=== PATIENT | male | born 1940 | race Caucasian/White ===

== ENCOUNTER 2019-04-14 10:23 | Inpatient (IN) | payer MEDICARE ==
--- NOTE | 2019-04-14 12:06 | ED Physician Documentation ---
PD HPI LOWER EXT INJURY - Stated complaint Stated Complaint: GLF - RT LEG PX - Chief complaint Chief Complaint: Ext Problem - History obtained from History obtained from: Patient, Family - History of Present Illness PD HPI LOW EXT INJURY LOCATION: Right, Hip Type of injury: Fall Where injury occurred: Other (parking lot) Timing - onset: Today Timing - duration: Hours (1) Timing - details: Abrupt onset Pain level max: 7 Pain level now: 5 Improved by: Rest, Ice, Immobilization Worsened by: Moving, Palpating Associated symptoms: No: Weakness, Numbness, Tingling, Swelling Contributing factors: No: Anticoagulated Similar symptoms before: Has not had sx before Recently seen: Not recently seen Review of Systems Ten Systems: 10 systems reviewed and negative Constitutional: denies: Fever, Chills Cardiac: denies: Chest pain / pressure Respiratory: denies: Cough GI: denies: Nausea, Vomiting, Diarrhea : denies: Dysuria Skin: denies: Rash Musculoskeletal: denies: Neck pain, Back pain Neurologic: denies: Headache PD PAST MEDICAL HISTORY - Past Medical History Past Medical History: Yes Endocrine/Autoimmune: Type 2 diabetes - Past Surgical History Past Surgical History: No - Present Medications Home Medications: Ambulatory Orders Medication Instructions Recorded Confirmed Aspirin 81 mg PO DAILY 04/14/19 04/14/19 Atenolol 50 mg PO BID 04/14/19 04/14/19 Glipizide 10 mg PO BID 04/14/19 04/14/19 Levothyroxine [Synthroid] 125 mcg PO QDAC 04/14/19 04/14/19 Lisinopril 40 mg PO DAILY 04/14/19 04/14/19 Metformin HCl 850 mg PO TID 04/14/19 04/14/19 Simvastatin 1.5 tab PO DAILY PM 04/14/19 04/14/19 hydroCHLOROthiazide 0.5 tab PO DAILY 04/14/19 04/14/19 [Hydrochlorothiazide] - Allergies Allergies/Adverse Reactions: Allergies Allergy/AdvReac Type Severity Reaction Status Date / Time No Known Drug Allergies Allergy Verified 04/14/19 10:38 - Social History Does the pt smoke?: No Smoking Status: Never smoker Does the pt drink ETOH?: Yes Does the pt have substance abuse?: No - Immunizations Immunizations: TDAP current <10years, Other immun not current PD ED PE NORMAL - Vitals Vital signs reviewed: Yes - General General: Alert and oriented X 3, No acute distress - HEENT HEENT: Atraumatic, PERRL, Moist mucous membranes - Neck Neck: Supple, no meningeal sign - Cardiac Cardiac: RRR, Strong equal pulses - Respiratory Respiratory: No respiratory distress, Clear bilaterally - Abdomen Abdomen: Soft, Non tender, Non distended - Back Back: No spinal TTP - Derm Derm: Warm and dry - Extremities Extremities: Other (TTP R hip, limited ROM 2/2 pain. NVI) - Neuro Neuro: Alert and oriented X 3, No motor deficit, No sensory deficit - Psych Psych: Normal mood, Normal affect Results - Vitals Vitals: Vital Signs - 24 hr 04/14/19 04/14/19 10:35 12:35 Temperature 36.8 C 36.5 C Heart Rate 59 L 61 Respiratory 16 16 Rate Blood Pressure 112/55 L 143/65 H O2 Saturation 100 99 Oxygen O2 Source Room air - EKG (time done) 1224 Rate: Rate (enter#) (61) Rhythm: NSR [place]: Normal Intervals: 1st degree AVB QRS: Normal Ischemia: Normal ST segments - Labs Labs: Laboratory Tests 04/14/19 04/14/19 04/14/19 12:20 12:20 12:20 WBC 10.4 RBC 3.98 L Hgb 12.8 L Hct 37.6 L MCV 94.5 H MCH 32.2 H MCHC 34.0 RDW 12.6 Plt Count 206 MPV 9.8 Neut # (Auto) 8.2 H Lymph # (Auto) 1.5 [place] # (Auto) 0.4 Eos # (Auto) 0.3 Baso # (Auto) 0.1 Absolute Nucleated RBC 0.00 Nucleated RBC % 0.0 Sodium 141 Potassium 4.3 Chloride 106 Carbon Dioxide 27 Anion Gap 8.0 BUN 29 H Creatinine 1.2 Estimated GFR (MDRD) 58 L Glucose 215 H Calcium 9.8 Total Bilirubin 0.8 AST 24 ALT 22 Alkaline Phosphatase 83 Total Protein 7.4 Albumin 4.1 Globulin 3.3 Albumin/Globulin Ratio 1.2 Lipase 125 H Blood Type O POSITIVE Antibody Screen NEGATIVE - Rads (name of study) r hip xray Radiology: Prelim report reviewed, EMP read contemporaneously, See rad report (Acute mildly displaced oblique fracture involving the right femoral neck and greater and lesser trochanters, best seen on AP study. No additional fractures or joint abnormalities noted. ) cxr Radiology: Prelim report reviewed, EMP read contemporaneously, See rad report ( Low lung volumes with presumed right basilar atelectasis. Otherwise clear lungs 2. Suspected right diaphragmatic eventration. ) PD MEDICAL DECISION MAKING - ED course Complexity details: reviewed results, re-evaluated patient, considered differential, d/w patient, d/w family, d/w beauty consultant ED course: 78-year-old male with a right hip fracture. Consult orthopedics Dr. Vera who will take him to the operating room for repair. Consulted the hospitalist, Dr. Salguero as well. I contacted the [facility] x2 and left messages at approximately 1215 and 1:15 PM. No callback from the [facility]. Patient needs care and therefore we will care for him here. This document was made in part using voice recognition software. While efforts are made to proofread this document, sound alike and grammatical errors may occur. Departure - Departure Disposition: 66 [facility] DC/Xfer Clinical Impression: Hip fracture, right Qualifiers: Encounter type: initial encounter Fracture type: closed Qualified Code(s): S72.001A - Fracture of unspecified part of neck of right femur, initial encounter for closed fracture Condition: Stable Discharge Date/Time: 04/14/19 14:18
--- NOTE | 2019-04-14 12:07 | XRAY Report ---
Reason: fall, R hip pain Procedure Date: 04/14/2019 Accession Number: [id number] / [id number] Procedure: XR - Hip w/Pelvis 2-3V RT CPT Code: Final Report FULL RESULT: EXAM: PELVIS FOR HIP RADIOGRAPHY, 2 VIEWS EXAM DATE: 04/14/2019 11:39 AM. CLINICAL HISTORY: 78-year-old male status post fall with right hip pain. COMPARISON: XR R HIP 02/24/2007 7:08 PM. TECHNIQUE: AP view the pelvis and both hips and cross table lateral view right hip. FINDINGS: Bones: Mildly displaced oblique fracture involving the right femoral neck and greater and lesser trochanter. No additional fractures noted. Osseous structures otherwise unremarkable for age. Joints: Normal. No dislocation. The hip joint space is preserved. No subluxation or joint effusion. Soft Tissues: Normal. No soft tissue swelling. IMPRESSION: Acute mildly displaced oblique fracture involving the right femoral neck and greater and lesser trochanters, best seen on AP study. No additional fractures or joint abnormalities noted. RADIA
--- NOTE | 2019-04-14 12:21 | XRAY Report ---
Reason: preop Procedure Date: 04/14/2019 Accession Number: [id number] / [id number] Procedure: XR - Chest 1 View X-Ray CPT Code: 78500 Final Report FULL RESULT: EXAM: CHEST RADIOGRAPHY EXAM DATE: 04/14/2019 11:45 AM. CLINICAL HISTORY: Preop. COMPARISON: None.. TECHNIQUE: 1 view. FINDINGS: Lungs/Pleura: Low lung volumes. Lobular contour of right hemidiaphragm suggesting eventration. Linear opacities in the right base likely reflect atelectasis. Otherwise clear lungs without other focal consolidation, pleural effusion, or pneumothorax. Mediastinum: Within exam limitations, the cardiomediastinal contour is normal. Other: None. IMPRESSION: 1. Low lung volumes with presumed right basilar atelectasis. Otherwise clear lungs 2. Suspected right diaphragmatic eventration. RADIA
[2019-04-14 12:33] LABS: BASOPHILS # (AUTO) 0.1 10^3/uL (0.0-0.1); BASOPHILS % (AUTO) 0.7 %; EOSINOPHILS # (AUTO) 0.3 10^3/uL (0.0-0.7); EOSINOPHILS % (AUTO) 2.6 %; HGB - HEMOGLOBIN 12.8 g/dL (14.0-18.0); LYMPHOCYTES # (AUTO) 1.5 10^3/uL (1.5-3.5); MEAN CORPUSCULAR HEMOGLOBIN 32.2 pg (27.0-31.0); MEAN CORPUSCULAR VOLUME 94.5 fL (80.0-94.0); MEAN PLATELET VOLUME 9.8 fL (7.4-11.4); MONOCYTES # (AUTO) 0.4 10^3/uL (0.0-1.0); MONOCYTES % (AUTO) 3.8 %; NEUTROPHILS # (AUTO) 8.2 10^3/uL (1.5-6.6); NEUTROPHILS % (AUTO) 78.3 %; PLT - PLATELET COUNT 206 10^3/uL (130-450); RED BLOOD COUNT 3.98 10^6/uL (4.70-6.10); RED CELL DISTRIBUTION WIDTH 12.6 % (12.0-15.0); WHITE BLOOD COUNT 10.4 x10^3/uL (4.8-10.8)
[2019-04-14] MEDS ORDERED: ceFAZolin 2 GM in SODIUM CHLORIDE 0.9% 100ML 100 ML IV STA (12:44)
[2019-04-14 12:46] LABS: ALBUMIN 4.1 g/dL (3.2-5.5); ALBUMIN/GLOBULIN RATIO 1.2 (1.0-2.2); BILIRUBIN,TOTAL 0.8 mg/dL (0.2-1.0); CALCIUM 9.8 mg/dL (8.5-10.3); CREATININE 1.2 mg/dL (0.6-1.2); TOTAL PROTEIN 7.4 g/dL (6.7-8.2)
--- NOTE | 2019-04-14 12:48 | PROVIDER PROGRESS NOTE ---
Subjective - Prog Note Date Prog Note Date: 04/14/19 Prog Note Time: 12:46 - Subjective Pt reports feeling: Worse (GLF at [facility], sustaining a minimally displaced right IT hip fracture. No LOC or other injury) Objective - Vital Signs/Intake & Output Vital Signs: Vital Signs x48h Temp Pulse Resp BP Pulse Ox 04/14/19 12:35 36.5 C 61 16 143/65 H 99 04/14/19 10:35 36.8 C 59 L 16 112/55 L 100 - Lab Results Fish Bones: 04/14/19 12:20 04/14/19 12:20 Other Labs: Lab Results x24hrs 04/14/19 04/14/19 Range/Units 12:20 12:20 WBC 10.4 (4.8-10.8) x10^3/uL RBC 3.98 L (4.70-6.10) 10^6/uL Hgb 12.8 L (14.0-18.0) g/dL Hct 37.6 L (42.0-52.0) % MCV 94.5 H (80.0-94.0) fL MCH 32.2 H (27.0-31.0) pg MCHC 34.0 (32.0-36.0) g/dL RDW 12.6 (12.0-15.0) % Plt Count 206 (130-450) 10^3/uL MPV 9.8 (7.4-11.4) fL Neut # (Auto) 8.2 H (1.5-6.6) 10^3/uL Lymph # (Auto) 1.5 (1.5-3.5) 10^3/uL [place] # (Auto) 0.4 (0.0-1.0) 10^3/uL Eos # (Auto) 0.3 (0.0-0.7) 10^3/uL Baso # (Auto) 0.1 (0.0-0.1) 10^3/uL Absolute Nucleated RBC 0.00 x10^3/uL Nucleated RBC % 0.0 /100WBC Sodium 141 (135-145) mmol/L Potassium 4.3 (3.5-5.0) mmol/L Chloride 106 (101-111) mmol/L Carbon Dioxide 27 (21-32) mmol/L Anion Gap 8.0 (6-13) BUN 29 H (6-20) mg/dL Creatinine 1.2 (0.6-1.2) mg/dL Estimated GFR (MDRD) 58 L (>89) Glucose 215 H (70-100) mg/dL Calcium 9.8 (8.5-10.3) mg/dL Total Bilirubin 0.8 (0.2-1.0) mg/dL AST 24 (10-42) IU/L ALT 22 (10-60) IU/L Alkaline Phosphatase 83 (42-121) IU/L Total Protein 7.4 (6.7-8.2) g/dL Albumin 4.1 (3.2-5.5) g/dL Globulin 3.3 (2.1-4.2) g/dL Albumin/Globulin Ratio 1.2 (1.0-2.2) Lipase 125 H (22-51) U/L - Diagnostic Imaging Diagnostic Imaging Comments: XR show right IT hip fracture - Other Results/Comments Other Results/Comments: EXAM: Right hip - tender laterally. Painful hip motion. Moves toes well. Sensation intact. Good cap filling Assessment/Plan - Problem List (1) Hip fracture, right Impression: Stable PLAN: To OR today for short interTan nailing of right hip fracture. Risk and benefits of surgery explained. questions answered. Leg marked. Consent signed by son, per patient's wishes. Qualifiers: Encounter type: initial encounter Fracture type: closed Qualified Code(s): S72.001A - Fracture of unspecified part of neck of right femur, initial encounter for closed fracture
--- NOTE | 2019-04-14 12:48 | ANESTHESIA ---
Pre-Anesthesia VS, & Labs - Diagnosis Right fracture hip - Procedure Right hip nailing Vital Signs: Temp Pulse Resp BP Pulse Ox 36.5 C 61 16 143/65 H 99 04/14/19 12:35 04/14/19 12:35 04/14/19 12:35 04/14/19 12:35 04/14/19 12:35 Height 5 ft 7 in Weight (kg) 81.647 kg Body Mass Index 28.1 - NPO Other (Breakfast at 0800) - Lab Results Current Lab Results: Laboratory Tests 04/14/19 12:20: WBC 10.4, RBC 3.98 L, Hgb 12.8 L, Hct 37.6 L, MCV 94.5 H, MCH 32.2 H, MCHC 34.0, RDW 12.6, Plt Count 206, MPV 9.8, Neut # (Auto) 8.2 H, Lymph # (Auto) 1.5, [place] # (Auto) 0.4, Eos # (Auto) 0.3, Baso # (Auto) 0.1, Absolute Nucleated RBC 0.00, Nucleated RBC % 0.0 Fish Bones: 04/14/19 12:20 Home Medications and Allergies Allergies/Adverse Reactions: Allergies Allergy/AdvReac Type Severity Reaction Status Date / Time No Known Drug Allergies Allergy Verified 04/14/19 10:38 Anes History & Medical History - Anesthetic History Anesthesia Complications: reports: No previous complications Family history of Anesthesia Complications: Denies Family history of Malignant Hyperthermia: Denies - Medical History Cardiovascular: reports: Hypertension Pulmonary: reports: None Gastrointestinal: reports: None Urinary: reports: None Neuro: reports: None Musculoskeletal: reports: None Endocrine/Autoimmune: reports: Type 2 diabetes Blood Disorders: reports: None Skin: reports: Other (Skin cancer) Smoking Status: Former smoker Psychosocial: reports: No issues indicated Results - EKG Results EKG Comparison: Reviewed EKG (Auscultated SARAH II/IV) Exam General: Alert, Oriented x3, Cooperative Dental: Dentures full Upper, Dentures full Lower, Partials Lower Mouth Opening: Greater than 4 Fingerbreadths Neck Mobility: Normal Mallampati classification: II Thyromental Distance: greater than 6 cm Respiratory: Lungs clear Cardiovascular: Regular rate, Other (Systolic ejection murmur) Mental/Cognitive Status: Alert/Oriented X3 Cognitive Status: Within normal limits Plan Anesthesia Type: General Consent for Procedure(s) Verified and Reviewed: Yes Code Status: Attempt Resuscitation ASA classification: 3-Severe systemic disease Is this case an emergency?: Yes
--- NOTE | 2019-04-14 13:04 | CONSULTATION NOTE ---
DATE OF SERVICE: 04/14/2019 Physician: Eduar Vera MD REFERRING PHYSICIAN: Dr. Keyon Alarcon of the emergency room department. CHIEF COMPLAINT: "My right hip hurts." HISTORY OF PRESENT ILLNESS: The patient is an 78-year-old male, diabetic, who apparently w as walking up a ramp at [employer] when he stumbled and fell onto his right side. He noted immediate pa in and deformity in the leg. He was unable to stand or weight bear after this fall. Denies any loss of consciousness or other injuries. No distal weakness and numbness noted. He was taken by sam perez to the emergency room here at [facility]. He was evaluated, including x-rays that s howed evidence of a minimally displaced right intertrochanteric hip fracture. There was no neurovasc ular compromise. PHYSICAL EXAMINATION: The patient had 1-2+ tenderness on palpation over the lateral aspect of the ri ght hip. Had painful range of motion of the hip. Moves his toes satisfactory. Sensation intact thr oughout the lower extremity. Good capillary filling noted of the toes. IMAGING: X-rays that were taken were reviewed and show evidence of a mildly displaced right intertro chanteric hip fracture. ASSESSMENT: 1. Closed right intertrochanteric hip fracture. 2. History of diabetes. PLAN: The patient apparently had breakfast at 8:00 this morning. I have discussed this case with an esthesia in the OR and we will plan then on tentatively proceeding with surgical fixation of this fra cture at about 2 p.m. today. I plan on doing a short Intertan nailing of his fracture. Risks and be nefits of surgery were explained to the patient and his son, including the anesthesia risks, infectio n, blood loss, nerve damage, malunion, nonunion, hardware failure, blood clots, etc. The patient appe ared to understand these risks and benefits. All questions were answered. They wished to proceed wi surgery as planned. The leg was marked. Consent signed. TD: 04/14/2019 12:54
[2019-04-14] MEDS ORDERED: MORPHINE 2 MG/ML CARPUJECT IVP PRN (13:30)
[2019-04-14] MEDS ORDERED: SODIUM CHLORIDE FLUSH 0.9% 10 ML SYRINGE IVP PRN ×2 (13:30→16:02)
[2019-04-14] MEDS ORDERED: ONDANSETRON ODT 4 MG TABLET TL PRN (13:30)
[2019-04-14] MEDS ORDERED: ONDANSETRON 4 MG/2 ML VIAL IVP PRN ×2 (13:30→16:02)
[2019-04-14] MEDS ORDERED: SODIUM CHLORIDE 0.9% 1,000 ML IV SCH ×2 (14:00→17:00)
[2019-04-14] MEDS ORDERED: LACTATED RINGERS 1,000 ML IV ONE (14:19)
--- NOTE | 2019-04-14 14:53 | HISTORY & PHYSICAL EXAMINATION ---
DATE OF SERVICE: 04/14/2019 Physician: Nilsa Salguero MD PRIMARY CARE PROVIDER: [facility]. ADMITTING PROVIDER: Nilsa Salguero MD CHIEF COMPLAINT: Fall with hip pain. HISTORY OF PRESENT ILLNESS: Patient is an absolutely pleasant 78-year-old white male. He is a retired flux core welder. It is not very in tune with his medical problems. He knows he has diabetes, but he takes a lot more pills for other conditions that he cannot name. He denies having dementia. He was walking in the parking lot today of [employer], tripped and fell and landed on his right side. He was brought to the emergency room and he has a mildly displaced oblique fracture involving the right femoral neck and greater and lesser trochanter. Because he is a [facility] patient, we have attempted to contact the [facility] twice now. Dr. Alarcon has carefully documented our attempts at contacting the [facility] to see if they wanted us to transfer him to their facility. Patient has already been here several hours, and while his surgery is not emergent, it is urgent. As such, we are going to go ahead and admit patient to our service for orthopedic surgery to consult so he could be treated expeditiously for this femur fracture. Although patient states that he is not aware of any other medical conditions, besides diabetes, he does on review of systems state that everything is fine. He has no change in cardiovascular endurance for over a year. He denies chest pain, palpitations, and this shortness of breath is the same as it has always been for decades. He denies edema, any change in bowel or bladder habits, abdominal pain. Denies urgency, frequency, dysuria. Appetite is the same as it has always been. He has no unexpected weight changes. He gets up at night to urinate, depending on how much fluid he drank during the day. Otherwise, he has no nocturia. He has slight decreased stream. Has mild osteoarthritis complaints and stiffness in the morning that resolves by late afternoon, but nothing that slowed him down. He is still able to take care of all of his activities of daily living. He feeds himself, dresses himself, does occasional light chores in the house. His son does live with him. That is more for financial reasons then lack of ability to take care of himself. When I asked him how his diabetes is doing. He does not have any intersection. He does not check his sugars. Has no idea what an A1c is. PAST MEDICAL HISTORY 1. Diabetes. 2. Unknown diseases. We will need to verify once his pills have got brought in. At this time, the [facility] is not able to answer my phone call directly. ALLERGIES: NO KNOWN DRUG ALLERGIES. MEDICATIONS: Unknown at this time. He says he takes 3 pills, one of them is as an aspirin. Son has gone home to get medications. SOCIAL HISTORY: Born and raised in [facility] and [facility]. When he was growing up, his father was working for [employer]. They had a huge contract in [place]. While they were in [place] the orders came down, that if they wanted to continue working on this project and continue using the [employer], they would have to become [place] Citizens. As such, his dad moved the family down to [facility] where patient became a [place] citizen. 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 He was in [place] for 10 years. To his knowledge he is not service connected. He smoked, started at the age of 14 and quit somewhere in his mid 20s. Smoked 1 pack per day. He drank very heavily in his youth, but had probably stop drinking by late 30s to that extent. Never had problems with alcohol withdrawal, cirrhosis of the liver. He used to drink up to 3 beers on a Wednesday night when he goes to the [employer]. In the last 10 years, he has brought that down to 1 beer on a Wednesday night. His has been for about 6 years. He says he does not know what she of. He has no history of recreational substance abuse even in [place]. FAMILY HISTORY 1. Mom at age 43 of heart disease, unknown type. It was a sudden . Dad at age 84, about 6 years ago. That is an interesting age range. Dad of "old age." 2. One sister is healthy in [facility]. 3. Two kids are healthy. One son lives with him here in [place]. One daughter lives nearby. Between the 2 of them he has 6 grandkids and he absolutely adores them. As far as he knows, his kids are healthy, no high blood pressure, cancer, diabetes, heart attack, stroke or thyroid disease. REVIEW OF SYSTEMS: An 11-point review of systems done as above in history of present illness. All pertinent positives and negatives registered. He denies memory loss, syncope, seizures. PREVIOUS LEVEL OF FUNCTION: Noted above in history of present illness. PHYSICAL EXAMINATION VITAL SIGNS: Temperature is 36.8, pulse of 61, blood pressure is 143/65, respirations are 16, and he is 99% on room air. GENERAL: He is an elderly gentleman, unshaven, slightly disheveled, lying flat on his back with his hands folded across his chest. Lying comfortably long as we do not move him. He is very jovial. Appears comfortable as long as we do not move that leg. NECK: Shows him to have healing of a yellowish grayscale between his eyebrows, over the bridge of his nose, down the bridge of his nose to the nasolabial folds. An area over the right preauricular area that appeared ulcerated as well. Pupils are equal, round and reactive. Sclerae are nonicteric. Slightly dry oral mucosa and lips. Voice is slightly hoarse. No facial asymmetry. Speech is normal. NECK: Supple. No goiter. No bruits. No JVD. LUNGS: Coarse anterior breath sounds. No crackles, rhonchi or wheezing. Slightly prolonged in exhalation. No respiratory effort that is increased with speaking to me. PMI is normally placed with distant cardiac tones with a regular rate, rhythm and a soft systolic murmur at left lower sternal border. ABDOMEN: Obese, soft, nontender. Normal bowel sounds. No hepatosplenomegaly. No rebound or guarding. EXTREMITIES: Warm. Right leg is externally rotated. Left leg has good dorsalis pedis and posterior tibial pulses. No clubbing, cyanosis or edema in hands or feet. NEUROLOGIC: He is alert, oriented to person, place and time. Cranial nerves II-XII appear grossly intact other than he may be slightly deaf. Upper extremity strength testing is normal. He can lift his arms above his head, squeeze my hands, biceps and triceps strength testing appears symmetrical bilaterally. He can move his left leg for me, bend at the knee, lift his leg off the table. He can wiggle his right toes, but I am not moving his right leg at this time, toes are downgoing. LABORATORY DATA: Sodium 141, potassium 4.3, BUN 29, creatinine 1.2, random glucose 215, lipase 125, white cell count 10.4, hemoglobin 12.8, hematocrit 37.6, MCV 94.5, platelets 206. IMAGING: Hip x-ray is as above. He has acute mildly displaced oblique fracture involving the right femoral neck and greater and lesser trochanter. Best seen on AP study. Chest x-ray has low lung volumes with presumed right bibasilar atelectasis. Suspected right diaphragmatic eventration. EKG has sinus rhythm. Prolonged LA interval to 234, compatible with first- degree AV block. Early transition and is always, loss of any anterior voltage in aVF. Slight nondiagnostic Q in lead III. No acute ST-T wave changes. Sinus rhythm. ASSESSMENT/PLAN 1. Fracture, right femur. Due to mechanical fall. PLAN +Inpatient admission. +ATTESTATION: Patient will be discharged within 96 hours. +Orthopedic consult has already been obtained. +Surgery planned for this afternoon, patient kept n.p.o. 2. Preoperative evaluation. This patient NSQUIP score for serious complication is 5.7%. Average risk is 9.2%. For any complication, his risk is 5.9%, with average was 9.6%. Cardiac complication is 0.3%, with average risk of 1%. Most likely he will be discharged to a rehab facility on postoperative day #3. Predicted length of stay will be 3.5 days. 3. Type 2 diabetes mellitus. Unknown if controlled or uncontrolled by his history. Unknown what medications he uses. PLAN +N.p.o. status at this time. +Check A1c. +Start sliding scale insulin 6 hours as needed until he is able to eat. Most likely it will be later on this evening. 4. Medication reconciliation. This will need to be done. His son will be going to the house to go poultry picking machine tender the medications and bring all those bottles in for us. 5. Deep venous thrombosis prophylaxis will be compression stockings and JASEN hose. 6. FULL CODE status at this time. TD: 04/14/2019 14:03 AR
[2019-04-14] MEDS ORDERED: SODIUM CHLORIDE 0.9% 1,000 ML IV ONE (15:20)
[2019-04-14] MEDS: BUPIVACAINE 0.5%-EPI 1:200000 PF 30 ML VIAL ONE ×2 (15:21→15:46)
[2019-04-14] MEDS ORDERED: PROCHLORPERAZINE 10 MG/2 ML VIAL IVP PRN (16:02)
[2019-04-14] MEDS ORDERED: SENNA 8.6 MG TABLET PO PRN (16:02)
[2019-04-14] MEDS ORDERED: DOCUSATE SODIUM 100 MG CAPSULE PO PRN (16:02)
--- NOTE | 2019-04-14 16:07 | OPERATIVE REPORT ---
Operative Report - General Admit Date: 04/14/19 Procedure Date: 04/14/19 Planned Procedure: Short interTan nailing Right hip fracture Pre-Op Diagnosis: Closed right intertrochanteric hip fracture Procedure Performed: Closed reduction and short interTan nailing right hip fracture Post Op Diagnosis: Same - Procedure Note Primary Surgeon: Kellie Vera MD Anesthesia Provider: Chinedu Driscoll CRNA Anesthesia Technique: General ET tube IV Fluids (mL): 1,000 Estimated Blood Loss (mL): 50 Complications: None
[2019-04-14] MEDS ORDERED: SODIUM CHLORIDE FLUSH 0.9% 10 ML SYRINGE IVP SCH (17:00)
[2019-04-14] MEDS: SODIUM CHLORIDE FLUSH 0.9% 10 ML SYRINGE IVP SCH (17:21)
[2019-04-14] MEDS ORDERED: ROCURONIUM 50 MG/5 ML VIAL IVP ONE (17:45)
[2019-04-14] MEDS ORDERED: NEOSTIGMINE 1 MG/1 ML 10 ML MDV IVP ONE (17:45)
[2019-04-14] MEDS ORDERED: PROPOFOL 200 MG/20 ML VIAL IVP ONE (17:45)
[2019-04-14] MEDS ORDERED: fentaNYL 100 MCG/2 ML VIAL IVP ONE (17:45)
[2019-04-14] MEDS ORDERED: GLYCOPYRROLATE 1 MG/5 ML VIAL IVP ONE (17:45)
[2019-04-14 17:51] LABS: BILIRUBIN,URINE NEGATIVE (NEGATIVE); GLUCOSE, URINE (UA) NEGATIVE (NEGATIVE); KETONES,URINE (UA) 15 mg/dL (NEGATIVE); LEUKOCYTE ESTERASE, URINE NEGATIVE (NEGATIVE); NITRITE,URINE NEGATIVE (NEGATIVE); OCCULT BLOOD,URINE TRACE-INTA (NEGATIVE); PROTEIN,URINE NEGATIVE (NEGATIVE); UROBILINOGEN,URINE 0.2 (NORMAL) E.U./dL (NORMAL)
[2019-04-14 17:55] LABS: CLARITY,URINE CLEAR (CLEAR)
--- NOTE | 2019-04-14 17:59 | OPERATIVE REPORT ---
DATE OF SERVICE: 04/14/2019 Physician: Eduar Vera MD PREOPERATIVE DIAGNOSIS: Closed right intertrochanteric hip fracture. POSTOPERATIVE DIAGNOSIS: Closed right intertrochanteric hip fracture. PROCEDURE PERFORMED: Closed reduction and short Intertan nailing of right hip fracture. SURGEON: Eduar Vera MD ANESTHESIA: General. DESCRIPTION OF PROCEDURE: Patient was taken to the operating room in the afternoon of 04/14/2019, wh ere he was placed under general anesthetic in the supine position without any complications. A regio nal nerve block was then performed on patient and a Perez catheter was inserted. Once this was done, he was then transferred supine onto the fracture table. The left unfractured extremity had its hip flexed and widely abducted and held with a well leg rodriguez. The fractured right lower extremity was then placed in axial traction with the leg internally rotated about 10-15 degrees. Fluoroscopic view s in AP and lateral projection, showed good reduction of our fracture and good visualization of the h ip joint as well as the proximal femur. We then prepped and draped the lateral hip and thigh in the usual fashion for our procedure. Through an oblique skin incision proximal to the tip of the greater trochanter, we dissected through the skin and subcutaneous tissues and fascial layers until we reached the greater trochanter. This i s where we placed the tip of the threaded guide pin. Its position was confirmed using fluoroscopic v iews. Satisfied with the start point, we then drove the guide pin under power through the greater tr ochanter into the proximal femur to the level of the lesser trochanter. Fluoroscopic views in AP and lateral projection, showed proper position of our guide pin and proper depth in both views. Satisfi ed with this, we then used the cannulated 16 mm channel reamer to ream the proximal femur over using our guide pin. The guide pin and reamer were then removed. We then inserted the selected short Inte rtan nail: 10 mm x 18 cm x 125 degree angle. This was inserted with the insertion outrigger. After using the mallet to drive the nail into its proper position, this was advanced down the femoral adriana l until the proximal oblique hole in the nail was in line with the central axis of the femoral neck a nd head. Once this reached the proper level, we then placed the oval drill sleeve into the distal en d of our alignment jig. This was advanced through a small skin incision to the lateral femoral kristian x. We then placed a pin guide in our drill sleeve and proceeded to drive the threaded-tip guidewire up through the proximal femur, femoral neck and femoral head. The position of the guide pin in AP an d lateral projection was noted to be very close to the central axis in both planes and was felt to be in a satisfactory position. At this point, we then measured with the direct measuring guide and det ermined a 105 mm length subtrochanteric hip lag screw would be utilized. We then removed the pin marilia de and then proceeded to ream the proximal femur with the cannulated reamer, reaming over our inserte d guide pin. The reamer was removed and then the selected subtrochanteric hip lag screw was then scr ewed into place. We used an 11 mm x 105 mm subtrochanteric hip lag screw. After this was inserted t ip of the lag screw was within 2-3 mm of subchondral bone in AP and lateral projections. Satisfied w ith this, we then removed the insertion apparatus. We set the proximal set screw in the nail using t he hinge screwdriver. Once we screwed this tight, we then backed it off 90 degrees. Next, we placed a concentric silver and gold drill sleeves into the distal end of our alignment jig through a small skin incision, placing these guides up against the lateral femoral cortex. Our drill was then used t o perforate the lateral and medial shaft cortices. Fluoroscopic view showed that the drill was just beyond the medial femoral cortex. Direct measurements off our drill indicated a 35 mm distal locking screw would be utilized. We then removed the drill and the inner silver sleeve. We then inserted t he selected distal locking screw: 5 mm x 35 mm and screwed this into place. We got bicortical purch ase, which was confirmed in AP and lateral projections at the tip of the nail. This showed the screw to be through the distal hole in our nail, as well. Satisfied with this, we then obtained permanent views in AP and lateral projections of the tip of the nail and of the proximal end of the nail showi ng the fracture to be reduced satisfactorily and satisfactory placement of all the hardware. We then removed the insertion outrigger from the proximal end of our nail. We then irrigated the wounds out thoroughly with saline, closed the proximal wound fascia reba incision using a [id number] stitc h of 0 Vicryl. Subcutaneous tissue closed with simple buried stitches of 2-0 Vicryl in the proximal 2 incisions. Finally, all 3 skin incisions were closed with skin luciana. We injected a total of 20 mL of 0.5% Marcaine with epinephrine to provide skin anesthesia in all 3 incisions. We washed the w ounds and applied dressings to our incision sites. Patient was then awoken from his anesthetic and sheila barney to the recovery room in satisfactory condition. ESTIMATED BLOOD LOSS: 50 mL REPLACEMENT: 900 mL of crystalloid. INTRAOPERATIVE COMPLICATIONS: None. PLAN: patient will be advanced to weightbearing as tolerated on this right lower extremity beginning on postoperative day #1. May go walker ambulating, weightbearing as tolerated on this extremity. TD: 04/14/2019 16:18
--- NOTE | 2019-04-14 18:00 | XRAY Report ---
Reason: right hip fracture Procedure Date: 04/14/2019 Accession Number: [id number] / [id number] Procedure: [place] - OR C-Arm Procedure CPT Code: Final Report FULL RESULT: EXAM: FLUOROSCOPIC GUIDANCE EXAM DATE: 04/14/2019 05:30 PM. CLINICAL HISTORY: Right hip fracture. COMPARISON: None. FINDINGS: Images demonstrate various stages of a dynamic compression jerzy screw fixation of an intertrochanteric left femur fracture. See operative report for further. IMPRESSION: Fluoroscopic guidance provided for Dr. Vera. Total fluoroscopy time: 30 seconds. Number of images: 4. Dose is 10 mGy. RADIA
[2019-04-14 19:39] LABS: HGB - HEMOGLOBIN 10.8 g/dL (14.0-18.0)
--- NOTE | 2019-04-14 19:41 | XRAY Report ---
Reason: OR; Right Hip Fracture Procedure Date: 04/14/2019 Accession Number: [id number] / [id number] Procedure: XR - Hip w/Pelvis 2-3V RT CPT Code: Final Report FULL RESULT: EXAM: FLUOROSCOPIC GUIDANCE EXAM DATE: 04/14/2019 05:32 PM. CLINICAL HISTORY: OR; Right Hip Fracture. COMPARISON: HIP W/PELVIS 2-3V RT 04/14/2019 11:20 AM HIP W/PELVIS 2-3V RT 04/14/2019 4:26 PM. FINDINGS: IMPRESSION: Fluoroscopic guidance provided for right proximal femur ORIF. Total fluoroscopy time: 30 seconds. Number of images: 4. RADIA
--- NOTE | 2019-04-14 19:42 | XRAY Report ---
Reason: s/p pinning Procedure Date: 04/14/2019 Accession Number: [id number] / [id number] Procedure: XR - Hip w/Pelvis 1V RT CPT Code: Final Report FULL RESULT: EXAM: RIGHT HIP RADIOGRAPHY EXAM DATE: 04/14/2019 05:33 PM. CLINICAL HISTORY: S/p pinning. COMPARISON: HIP W/PELVIS 2-3V RT 04/14/2019 11:20 AM. TECHNIQUE: 1 views. FINDINGS IMPRESSION: Expected postoperative changes from right femoral open reduction internal fixation with intramedullary jerzy and femoral neck pin. Minimal cortical offset of the fracture. No dislocation.
[2019-04-14] MEDS ORDERED: ATENOLOL 25 MG TABLET PO SCH (21:00)
[2019-04-14] MEDS: ASPIRIN 325 MG TABLET PO SCH (21:32)
[2019-04-14] MEDS: glipiZIDE 5 MG TABLET PO SCH (21:32)
[2019-04-14] MEDS: ceFAZolin 2 GM in SODIUM CHLORIDE 0.9% 100ML 100 ML IV SCH (21:33)
[2019-04-14] MEDS: oxyCODONE 5 MG TABLET PO PRN (21:33)
[2019-04-14] MEDS: SODIUM CHLORIDE 0.9% 1,000 ML IV SCH ×2 (22:07→22:56)
[2019-04-15] MEDS: ceFAZolin 2 GM in SODIUM CHLORIDE 0.9% 100ML 100 ML IV SCH (05:27)
[2019-04-15] MEDS: SODIUM CHLORIDE FLUSH 0.9% 10 ML SYRINGE IVP SCH ×3 (05:34→17:03)
[2019-04-15 06:04] LABS: BASOPHILS # (AUTO) 0.1 10^3/uL (0.0-0.1); BASOPHILS % (AUTO) 0.7 %; EOSINOPHILS # (AUTO) 0.3 10^3/uL (0.0-0.7); EOSINOPHILS % (AUTO) 4.7 %; HGB - HEMOGLOBIN 8.7 g/dL (14.0-18.0); LYMPHOCYTES # (AUTO) 1.6 10^3/uL (1.5-3.5); LYMPHOCYTES % (AUTO) 22.4 %; MEAN CORPUSCULAR HEMOGLOBIN 30.6 pg (27.0-31.0); MEAN CORPUSCULAR HGB CONC 32.2 g/dL (32.0-36.0); MEAN CORPUSCULAR VOLUME 95.1 fL (80.0-94.0); MEAN PLATELET VOLUME 9.8 fL (7.4-11.4); MONOCYTES # (AUTO) 0.5 10^3/uL (0.0-1.0); NEUTROPHILS # (AUTO) 4.7 10^3/uL (1.5-6.6); NEUTROPHILS % (AUTO) 64.9 %; PLT - PLATELET COUNT 132 10^3/uL (130-450); RED BLOOD COUNT 2.84 10^6/uL (4.70-6.10); WHITE BLOOD COUNT 7.2 x10^3/uL (4.8-10.8)
[2019-04-15] MEDS: ATENOLOL 25 MG TABLET PO SCH ×3 (06:13→20:45)
[2019-04-15 06:17] LABS: BUN - BLOOD UREA NITROGEN 25 mg/dL (6-20); CARBON DIOXIDE - CO2 25 mmol/L (21-32); CHLORIDE 108 mmol/L (101-111); CREATININE 1.2 mg/dL (0.6-1.2); GFR - MDRD 58 (>89); GLUCOSE 211 mg/dL (70-100); SODIUM 140 mmol/L (135-145)
[2019-04-15 06:19] LABS: HB2 TOTAL 8.9 g/dL; HEMOGLOBIN A1C 0.65 g/dL; HEMOGLOBIN A1C % 8.8 % (4.6-6.2)
[2019-04-15 06:21] LABS: VBG PH 7.362 (7.31-7.41)
[2019-04-15] MEDS: LEVOTHYROXINE 125 MCG TABLET PO SCH (06:44)
[2019-04-15] MEDS: POLYETHYLENE GLYCOL 3350 17 GM PACKET PO SCH (08:27)
[2019-04-15] MEDS: ASPIRIN 325 MG TABLET PO SCH ×2 (08:27→17:03)
[2019-04-15] MEDS: glipiZIDE 5 MG TABLET PO SCH ×2 (08:27→20:44)
[2019-04-15] MEDS: INSULIN ASPART 300 UNIT/3 ML PEN SUBQ SCH ×4 (08:28→20:45)
[2019-04-15] MEDS: SODIUM CHLORIDE 0.9% 1,000 ML IV SCH (08:45)
[2019-04-15] MEDS ORDERED: LISINOPRIL 20 MG TABLET PO SCH (09:00)
[2019-04-15] MEDS ORDERED: ASPIRIN CHEW 81 MG TABLET PO SCH (09:00)
--- NOTE | 2019-04-15 09:24 | PROVIDER PROGRESS NOTE ---
Subjective - Prog Note Date Prog Note Date: 04/15/19 Prog Note Time: 09:22 - Subjective Pt reports feeling: Improved Subjective: he has minimal pain denies cough, sob but still get wheezy son in room with him Current Medications - Current Medications Current Medications: Active Medications Acetaminophen (Tylenol) 650 - 975 mg PO Q4HR PRN PRN Reason: PAIN Aspirin (Adrian) 325 mg PO BIDWM [facility] Last Admin: 04/15/19 08:27 Dose: 325 mg Atenolol (Tenormin) 50 mg PO BID [facility] Last Admin: 04/15/19 08:27 Dose: 50 mg Atorvastatin Calcium (Lipitor) 15 mg PO QPM [facility] Docusate Sodium (Colace 100mg Capsule) 100 mg PO BID PRN PRN Reason: Constipation Glipizide (Glucotrol) 10 mg PO BID [facility] Last Admin: 04/15/19 08:27 Dose: 10 mg Sodium Chloride (Normal Saline 0.9%) 1,000 mls @ 100 mls/hr IV .Q10H [facility] Last Admin: 04/15/19 08:45 Dose: 100 mls/hr Insulin Aspart (Novolog) 2 - 10 unit SUBQ 0800,1200,1700,2100 [facility]; Protocol Last Admin: 04/15/19 08:28 Dose: 2 unit Levothyroxine Sodium (Synthroid) 125 mcg PO QDAC [facility] Last Admin: 04/15/19 06:44 Dose: 125 mcg Lisinopril (Zestril) 40 mg PO DAILY [facility] Last Admin: 04/15/19 08:27 Dose: 40 mg Morphine Sulfate (Morphine (Carpuject)) 2 mg IVP Q2HR PRN PRN Reason: Pain 8 to 10 Ondansetron HCl (Zofran Odt) 4 mg TL Q6HR PRN PRN Reason: Nausea / Vomiting Ondansetron HCl (Zofran Inj) 4 mg IVP Q6HR PRN PRN Reason: Nausea / Vomiting Oxycodone HCl (Roxicodone) 5 mg PO Q4HR PRN PRN Reason: PAIN Last Admin: 04/14/19 21:33 Dose: 5 mg Polyethylene Glycol (Miralax) 17 gm PO DAILY [facility] Last Admin: 04/15/19 08:27 Dose: 17 gm Prochlorperazine Edisylate (Compazine Inj) 10 mg IVP Q6HR PRN PRN Reason: Nausea / Vomiting Senna (Senokot) 17.2 mg PO Q12H PRN PRN Reason: Constipation Sodium Chloride (Normal Saline Flush 0.9%) 10 ml IVP 0100,0900,1700 [facility] Last Admin: 04/15/19 08:45 Dose: 10 ml Sodium Chloride (Normal Saline Flush 0.9%) 10 ml IVP PRN PRN PRN Reason: NEEDED PER PROVIDER ORDERS Last Admin: 04/14/19 21:33 Dose: 10 ml Aspirin 81 mg PO DAILY 04/14/19 Atenolol 50 mg PO BID 04/14/19 Glipizide 10 mg PO BID 04/14/19 Levothyroxine [Synthroid] 125 mcg PO QDAC 04/14/19 Lisinopril 40 mg PO DAILY 04/14/19 Metformin HCl 850 mg PO TID 04/14/19 Simvastatin 1.5 tab PO DAILY PM 04/14/19 hydroCHLOROthiazide [Hydrochlorothiazide] 0.5 tab PO DAILY 04/14/19 Objective - Vital Signs/Intake & Output Reviewed Vital Signs: Yes Vital Signs: Vital Signs x48h Temp Pulse Resp BP Pulse Ox 04/15/19 07:30 36.4 C L 65 18 100/60 94 04/15/19 05:25 36.9 C 66 20 94/57 L 95 Intake & Output: Intake & Output 04/12/19 04/13/19 04/14/19 04/15/19 23:59 23:59 23:59 23:59 Intake Total 100 1721.667 Output Total 325 200 Balance -225 1521.667 - Objective General Appearance: positive: No acute distress, Alert, Other (elderly white male, sitting up in bed, about to get breakfast) Eyes Bilateral: positive: PERRL ENT: positive: Pharynx nml, Other (ulcerated skin on entire bridge of nose/ between eyebrows and right preauricular less red and angry) Neck: positive: No JVD. negative: Stiff neck Respiratory: positive: Chest non-tender, Other Cardiovascular: positive: Regular rate & rhythm, Systolic murmur. negative: Gallop/S4, Friction rub Abdomen: positive: Non-tender, No organomegaly, Nml bowel sounds, No distention Skin: positive: Warm, Dry Extremities: positive: Full ROM (excep for his right hip), No pedal edema Neurologic/Psychiatric: positive: Oriented x3, CN's nml (2-12) (excpet a little deaf), Motor nml - Lab Results Fish Bones: 04/15/19 05:25 04/15/19 05:25 Other Labs: Lab Results x24hrs 04/15/19 04/15/19 04/15/19 Range/Units 07:40 05:25 05:25 WBC (4.8-10.8) x10^3/uL RBC (4.70-6.10) 10^6/uL Hgb (14.0-18.0) g/dL Hct (42.0-52.0) % MCV (80.0-94.0) fL MCH (27.0-31.0) pg MCHC (32.0-36.0) g/dL RDW (12.0-15.0) % Plt Count (130-450) 10^3/uL MPV (7.4-11.4) fL Neut # (Auto) (1.5-6.6) 10^3/uL Lymph # (Auto) (1.5-3.5) 10^3/uL [place] # (Auto) (0.0-1.0) 10^3/uL Eos # (Auto) (0.0-0.7) 10^3/uL Baso # (Auto) (0.0-0.1) 10^3/uL Absolute Nucleated RBC x10^3/uL Nucleated RBC % /100WBC VBG pH 7.362 (7.31-7.41) Ionized Calcium 1.07 L (1.15-1.33) mmol/L Sodium (135-145) mmol/L Potassium (3.5-5.0) mmol/L Chloride (101-111) mmol/L Carbon Dioxide (21-32) mmol/L Anion Gap (6-13) BUN (6-20) mg/dL Creatinine (0.6-1.2) mg/dL Estimated GFR (MDRD) (>89) Glucose (70-100) mg/dL POC Whole Bld Glucose 154 H (70 - 100) mg/dL Glycated Hemoglobin 8.8 H (4.6-6.2) % Estim Average Glucose 206 H (70-100) Calcium (8.5-10.3) mg/dL Total Bilirubin (0.2-1.0) mg/dL AST (10-42) IU/L ALT (10-60) IU/L Alkaline Phosphatase (42-121) IU/L Total Protein (6.7-8.2) g/dL Albumin (3.2-5.5) g/dL Globulin (2.1-4.2) g/dL Albumin/Globulin Ratio (1.0-2.2) Lipase (22-51) U/L Urine Color Urine Clarity (CLEAR) Urine pH (5.0-7.5) PH Ur Specific [place] (1.002-1.030) Urine Protein (NEGATIVE) mg/dL Urine Glucose (UA) (NEGATIVE) mg/dL Urine Ketones (NEGATIVE) mg/dL Urine Occult Blood (NEGATIVE) Urine Nitrite (NEGATIVE) Urine Bilirubin (NEGATIVE) Urine Urobilinogen (NORMAL) E.U./dL Ur Leukocyte Esterase (NEGATIVE) Ur Microscopic Review Urine Culture Comments Blood Type Blood Type Recheck Antibody Screen 04/15/19 04/15/19 04/14/19 Range/Units 05:25 05:25 21:15 WBC 7.2 (4.8-10.8) x10^3/uL RBC 2.84 L (4.70-6.10) 10^6/uL Hgb 8.7 L (14.0-18.0) g/dL Hct 27.0 L (42.0-52.0) % MCV 95.1 H (80.0-94.0) fL MCH 30.6 (27.0-31.0) pg MCHC 32.2 (32.0-36.0) g/dL RDW 13.0 (12.0-15.0) % Plt Count 132 (130-450) 10^3/uL MPV 9.8 (7.4-11.4) fL Neut # (Auto) 4.7 (1.5-6.6) 10^3/uL Lymph # (Auto) 1.6 (1.5-3.5) 10^3/uL [place] # (Auto) 0.5 (0.0-1.0) 10^3/uL Eos # (Auto) 0.3 (0.0-0.7) 10^3/uL Baso # (Auto) 0.1 (0.0-0.1) 10^3/uL Absolute Nucleated RBC 0.00 x10^3/uL Nucleated RBC % 0.0 /100WBC VBG pH (7.31-7.41) Ionized Calcium YES (1.15-1.33) mmol/L Sodium 140 (135-145) mmol/L Potassium 3.8 (3.5-5.0) mmol/L Chloride 108 (101-111) mmol/L Carbon Dioxide 25 (21-32) mmol/L Anion Gap 7.0 (6-13) BUN 25 H (6-20) mg/dL Creatinine 1.2 (0.6-1.2) mg/dL Estimated GFR (MDRD) 58 L (>89) Glucose 211 H (70-100) mg/dL POC Whole Bld Glucose 93 (70 - 100) mg/dL Glycated Hemoglobin (4.6-6.2) % Estim Average Glucose (70-100) Calcium 8.0 L (8.5-10.3) mg/dL Total Bilirubin (0.2-1.0) mg/dL AST (10-42) IU/L ALT (10-60) IU/L Alkaline Phosphatase (42-121) IU/L Total Protein (6.7-8.2) g/dL Albumin (3.2-5.5) g/dL Globulin (2.1-4.2) g/dL Albumin/Globulin Ratio (1.0-2.2) Lipase (22-51) U/L Urine Color Urine Clarity (CLEAR) Urine pH (5.0-7.5) PH Ur Specific [place] (1.002-1.030) Urine Protein (NEGATIVE) mg/dL Urine Glucose (UA) (NEGATIVE) mg/dL Urine Ketones (NEGATIVE) mg/dL Urine Occult Blood (NEGATIVE) Urine Nitrite (NEGATIVE) Urine Bilirubin (NEGATIVE) Urine Urobilinogen (NORMAL) E.U./dL Ur Leukocyte Esterase (NEGATIVE) Ur Microscopic Review Urine Culture Comments Blood Type Blood Type Recheck Antibody Screen 04/14/19 04/14/19 04/14/19 Range/Units 19:32 17:45 16:03 WBC (4.8-10.8) x10^3/uL RBC (4.70-6.10) 10^6/uL Hgb 10.8 L (14.0-18.0) g/dL Hct 32.0 L (42.0-52.0) % MCV (80.0-94.0) fL MCH (27.0-31.0) pg MCHC (32.0-36.0) g/dL RDW (12.0-15.0) % Plt Count (130-450) 10^3/uL MPV (7.4-11.4) fL Neut # (Auto) (1.5-6.6) 10^3/uL Lymph # (Auto) (1.5-3.5) 10^3/uL [place] # (Auto) (0.0-1.0) 10^3/uL Eos # (Auto) (0.0-0.7) 10^3/uL Baso # (Auto) (0.0-0.1) 10^3/uL Absolute Nucleated RBC x10^3/uL Nucleated RBC % /100WBC VBG pH (7.31-7.41) Ionized Calcium (1.15-1.33) mmol/L Sodium (135-145) mmol/L Potassium (3.5-5.0) mmol/L Chloride (101-111) mmol/L Carbon Dioxide (21-32) mmol/L Anion Gap (6-13) BUN (6-20) mg/dL Creatinine (0.6-1.2) mg/dL Estimated GFR (MDRD) (>89) Glucose (70-100) mg/dL POC Whole Bld Glucose 109 H (70 - 100) mg/dL Glycated Hemoglobin (4.6-6.2) % Estim Average Glucose (70-100) Calcium (8.5-10.3) mg/dL Total Bilirubin (0.2-1.0) mg/dL AST (10-42) IU/L ALT (10-60) IU/L Alkaline Phosphatase (42-121) IU/L Total Protein (6.7-8.2) g/dL Albumin (3.2-5.5) g/dL Globulin (2.1-4.2) g/dL Albumin/Globulin Ratio (1.0-2.2) Lipase (22-51) U/L Urine Color YELLOW Urine Clarity CLEAR (CLEAR) Urine pH 5.0 (5.0-7.5) PH Ur Specific [place] 1.020 (1.002-1.030) Urine Protein NEGATIVE (NEGATIVE) mg/dL Urine Glucose (UA) NEGATIVE (NEGATIVE) mg/dL Urine Ketones 15 H (NEGATIVE) mg/dL Urine Occult Blood [place] (NEGATIVE) Urine Nitrite NEGATIVE (NEGATIVE) Urine Bilirubin NEGATIVE (NEGATIVE) Urine Urobilinogen 0.2 (NORMAL) (NORMAL) E.U./dL Ur Leukocyte Esterase NEGATIVE (NEGATIVE) Ur Microscopic Review NOT INDICATED Urine Culture Comments NOT INDICATED Blood Type Blood Type Recheck Antibody Screen 04/14/19 04/14/19 04/14/19 Range/Units 14:02 12:20 12:20 WBC (4.8-10.8) x10^3/uL RBC (4.70-6.10) 10^6/uL Hgb (14.0-18.0) g/dL Hct (42.0-52.0) % MCV (80.0-94.0) fL MCH (27.0-31.0) pg MCHC (32.0-36.0) g/dL RDW (12.0-15.0) % Plt Count (130-450) 10^3/uL MPV (7.4-11.4) fL Neut # (Auto) (1.5-6.6) 10^3/uL Lymph # (Auto) (1.5-3.5) 10^3/uL [place] # (Auto) (0.0-1.0) 10^3/uL Eos # (Auto) (0.0-0.7) 10^3/uL Baso # (Auto) (0.0-0.1) 10^3/uL Absolute Nucleated RBC x10^3/uL Nucleated RBC % /100WBC VBG pH (7.31-7.41) Ionized Calcium (1.15-1.33) mmol/L Sodium 141 (135-145) mmol/L Potassium 4.3 (3.5-5.0) mmol/L Chloride 106 (101-111) mmol/L Carbon Dioxide 27 (21-32) mmol/L Anion Gap 8.0 (6-13) BUN 29 H (6-20) mg/dL Creatinine 1.2 (0.6-1.2) mg/dL Estimated GFR (MDRD) 58 L (>89) Glucose 215 H (70-100) mg/dL POC Whole Bld Glucose (70 - 100) mg/dL Glycated Hemoglobin (4.6-6.2) % Estim Average Glucose (70-100) Calcium 9.8 (8.5-10.3) mg/dL Total Bilirubin 0.8 (0.2-1.0) mg/dL AST 24 (10-42) IU/L ALT 22 (10-60) IU/L Alkaline Phosphatase 83 (42-121) IU/L Total Protein 7.4 (6.7-8.2) g/dL Albumin 4.1 (3.2-5.5) g/dL Globulin 3.3 (2.1-4.2) g/dL Albumin/Globulin Ratio 1.2 (1.0-2.2) Lipase 125 H (22-51) U/L Urine Color Urine Clarity (CLEAR) Urine pH (5.0-7.5) PH Ur Specific [place] (1.002-1.030) Urine Protein (NEGATIVE) mg/dL Urine Glucose (UA) (NEGATIVE) mg/dL Urine Ketones (NEGATIVE) mg/dL Urine Occult Blood (NEGATIVE) Urine Nitrite (NEGATIVE) Urine Bilirubin (NEGATIVE) Urine Urobilinogen (NORMAL) E.U./dL Ur Leukocyte Esterase (NEGATIVE) Ur Microscopic Review Urine Culture Comments Blood Type O POSITIVE Blood Type Recheck O POSITIVE Antibody Screen NEGATIVE 04/14/19 Range/Units 12:20 WBC 10.4 (4.8-10.8) x10^3/uL RBC 3.98 L (4.70-6.10) 10^6/uL Hgb 12.8 L (14.0-18.0) g/dL Hct 37.6 L (42.0-52.0) % MCV 94.5 H (80.0-94.0) fL MCH 32.2 H (27.0-31.0) pg MCHC 34.0 (32.0-36.0) g/dL RDW 12.6 (12.0-15.0) % Plt Count 206 (130-450) 10^3/uL MPV 9.8 (7.4-11.4) fL Neut # (Auto) 8.2 H (1.5-6.6) 10^3/uL Lymph # (Auto) 1.5 (1.5-3.5) 10^3/uL [place] # (Auto) 0.4 (0.0-1.0) 10^3/uL Eos # (Auto) 0.3 (0.0-0.7) 10^3/uL Baso # (Auto) 0.1 (0.0-0.1) 10^3/uL Absolute Nucleated RBC 0.00 x10^3/uL Nucleated RBC % 0.0 /100WBC VBG pH (7.31-7.41) Ionized Calcium (1.15-1.33) mmol/L Sodium (135-145) mmol/L Potassium (3.5-5.0) mmol/L Chloride (101-111) mmol/L Carbon Dioxide (21-32) mmol/L Anion Gap (6-13) BUN (6-20) mg/dL Creatinine (0.6-1.2) mg/dL Estimated GFR (MDRD) (>89) Glucose (70-100) mg/dL POC Whole Bld Glucose (70 - 100) mg/dL Glycated Hemoglobin (4.6-6.2) % Estim Average Glucose (70-100) Calcium (8.5-10.3) mg/dL Total Bilirubin (0.2-1.0) mg/dL AST (10-42) IU/L ALT (10-60) IU/L Alkaline Phosphatase (42-121) IU/L Total Protein (6.7-8.2) g/dL Albumin (3.2-5.5) g/dL Globulin (2.1-4.2) g/dL Albumin/Globulin Ratio (1.0-2.2) Lipase (22-51) U/L Urine Color Urine Clarity (CLEAR) Urine pH (5.0-7.5) PH Ur Specific [place] (1.002-1.030) Urine Protein (NEGATIVE) mg/dL Urine Glucose (UA) (NEGATIVE) mg/dL Urine Ketones (NEGATIVE) mg/dL Urine Occult Blood (NEGATIVE) Urine Nitrite (NEGATIVE) Urine Bilirubin (NEGATIVE) Urine Urobilinogen (NORMAL) E.U./dL Ur Leukocyte Esterase (NEGATIVE) Ur Microscopic Review Urine Culture Comments Blood Type Blood Type Recheck Antibody Screen ABX Reporting Has patient been on IV antibiotics over the past 48 hours?: Yes Assessment/Plan - Problem List (1) Femur fracture, right Qualifiers: Encounter type: initial encounter Femur location: head, unspecified portion Fracture type: closed Qualified Code(s): S72.051A - Unspecified fracture of head of right femur, initial encounter for closed fracture (2) Controlled type 2 diabetes mellitus without complication, without long-term current use of insulin Impression: on oral sulfonylurea and a1c is >8%. Goal in a man his age would be between 7- 7.5%. Plan: add SS insulin. Resume metformin once he is home (3) Hypertension Impression: resumed his home meds yesterday once list brought in by son. since he is hypotensive. I expect its from blood loss and from his lisinopril 40 mg he had no cp, sob. will hold meds for systolic <110 Qualifiers: Hypertension type: essential hypertension Qualified Code(s): I10 - Essential (primary) hypertension (4) Hypothyroid Impression: resume meds. check TSH Qualifiers: Hypothyroidism type: acquired Qualified Code(s): E03.9 - Hypothyroidism, unspecified (5) Acute blood loss as cause of postoperative anemia Impression: Hgb 12.8 on admission>8.7 so far no hypoxia or sob. If drops < 8 may need transfusion
[2019-04-15 10:03] LABS: HGB - HEMOGLOBIN 8.8 g/dL (14.0-18.0)
[2019-04-15] MEDS: oxyCODONE 5 MG TABLET PO PRN ×2 (10:56→18:23)
--- NOTE | 2019-04-15 12:20 | PROVIDER PROGRESS NOTE ---
Subjective - Prog Note Date Prog Note Date: 04/15/19 Prog Note Time: 12:17 - Subjective Pt reports feeling: Improved (No new complaints. Very little pain now. Up in chair.) Objective - Vital Signs/Intake & Output Vital Signs: Vital Signs x48h Temp Pulse Resp BP Pulse Ox 04/15/19 07:30 36.4 C L 65 18 100/60 94 04/15/19 05:25 36.9 C 66 20 94/57 L 95 Intake & Output: Intake & Output 04/12/19 04/13/19 04/14/19 04/15/19 23:59 23:59 23:59 23:59 Intake Total 100 2821.667 Output Total 325 200 Balance -225 2621.667 - Lab Results Fish Bones: 04/15/19 09:45 04/15/19 05:25 Other Labs: Lab Results x24hrs 04/15/19 04/15/19 04/15/19 Range/Units 11:28 09:45 07:40 WBC (4.8-10.8) x10^3/uL RBC (4.70-6.10) 10^6/uL Hgb 8.8 L (14.0-18.0) g/dL Hct 27.0 L (42.0-52.0) % MCV (80.0-94.0) fL MCH (27.0-31.0) pg MCHC (32.0-36.0) g/dL RDW (12.0-15.0) % Plt Count (130-450) 10^3/uL MPV (7.4-11.4) fL Neut # (Auto) (1.5-6.6) 10^3/uL Lymph # (Auto) (1.5-3.5) 10^3/uL [place] # (Auto) (0.0-1.0) 10^3/uL Eos # (Auto) (0.0-0.7) 10^3/uL Baso # (Auto) (0.0-0.1) 10^3/uL Absolute Nucleated RBC x10^3/uL Nucleated RBC % /100WBC VBG pH (7.31-7.41) Ionized Calcium (1.15-1.33) mmol/L Sodium (135-145) mmol/L Potassium (3.5-5.0) mmol/L Chloride (101-111) mmol/L Carbon Dioxide (21-32) mmol/L Anion Gap (6-13) BUN (6-20) mg/dL Creatinine (0.6-1.2) mg/dL Estimated GFR (MDRD) (>89) Glucose (70-100) mg/dL POC Whole Bld Glucose 213 H 154 H (70 - 100) mg/dL Glycated Hemoglobin (4.6-6.2) % Estim Average Glucose (70-100) Calcium (8.5-10.3) mg/dL Total Bilirubin (0.2-1.0) mg/dL AST (10-42) IU/L ALT (10-60) IU/L Alkaline Phosphatase (42-121) IU/L Total Protein (6.7-8.2) g/dL Albumin (3.2-5.5) g/dL Globulin (2.1-4.2) g/dL Albumin/Globulin Ratio (1.0-2.2) Lipase (22-51) U/L TSH (0.34-5.60) uIU/mL Urine Color Urine Clarity (CLEAR) Urine pH (5.0-7.5) PH Ur Specific [place] (1.002-1.030) Urine Protein (NEGATIVE) mg/dL Urine Glucose (UA) (NEGATIVE) mg/dL Urine Ketones (NEGATIVE) mg/dL Urine Occult Blood (NEGATIVE) Urine Nitrite (NEGATIVE) Urine Bilirubin (NEGATIVE) Urine Urobilinogen (NORMAL) E.U./dL Ur Leukocyte Esterase (NEGATIVE) Ur Microscopic Review Urine Culture Comments Blood Type Blood Type Recheck Antibody Screen 04/15/19 04/15/19 04/15/19 Range/Units 05:25 05:25 05:25 WBC (4.8-10.8) x10^3/uL RBC (4.70-6.10) 10^6/uL Hgb (14.0-18.0) g/dL Hct (42.0-52.0) % MCV (80.0-94.0) fL MCH (27.0-31.0) pg MCHC (32.0-36.0) g/dL RDW (12.0-15.0) % Plt Count (130-450) 10^3/uL MPV (7.4-11.4) fL Neut # (Auto) (1.5-6.6) 10^3/uL Lymph # (Auto) (1.5-3.5) 10^3/uL [place] # (Auto) (0.0-1.0) 10^3/uL Eos # (Auto) (0.0-0.7) 10^3/uL Baso # (Auto) (0.0-0.1) 10^3/uL Absolute Nucleated RBC x10^3/uL Nucleated RBC % /100WBC VBG pH 7.362 (7.31-7.41) Ionized Calcium 1.07 L (1.15-1.33) mmol/L Sodium (135-145) mmol/L Potassium (3.5-5.0) mmol/L Chloride (101-111) mmol/L Carbon Dioxide (21-32) mmol/L Anion Gap (6-13) BUN (6-20) mg/dL Creatinine (0.6-1.2) mg/dL Estimated GFR (MDRD) (>89) Glucose (70-100) mg/dL POC Whole Bld Glucose (70 - 100) mg/dL Glycated Hemoglobin 8.8 H (4.6-6.2) % Estim Average Glucose 206 H (70-100) Calcium (8.5-10.3) mg/dL Total Bilirubin (0.2-1.0) mg/dL AST (10-42) IU/L ALT (10-60) IU/L Alkaline Phosphatase (42-121) IU/L Total Protein (6.7-8.2) g/dL Albumin (3.2-5.5) g/dL Globulin (2.1-4.2) g/dL Albumin/Globulin Ratio (1.0-2.2) Lipase (22-51) U/L TSH 2.19 (0.34-5.60) uIU/mL Urine Color Urine Clarity (CLEAR) Urine pH (5.0-7.5) PH Ur Specific [place] (1.002-1.030) Urine Protein (NEGATIVE) mg/dL Urine Glucose (UA) (NEGATIVE) mg/dL Urine Ketones (NEGATIVE) mg/dL Urine Occult Blood (NEGATIVE) Urine Nitrite (NEGATIVE) Urine Bilirubin (NEGATIVE) Urine Urobilinogen (NORMAL) E.U./dL Ur Leukocyte Esterase (NEGATIVE) Ur Microscopic Review Urine Culture Comments Blood Type Blood Type Recheck Antibody Screen 04/15/19 04/15/19 04/14/19 Range/Units 05:25 05:25 21:15 WBC 7.2 (4.8-10.8) x10^3/uL RBC 2.84 L (4.70-6.10) 10^6/uL Hgb 8.7 L (14.0-18.0) g/dL Hct 27.0 L (42.0-52.0) % MCV 95.1 H (80.0-94.0) fL MCH 30.6 (27.0-31.0) pg MCHC 32.2 (32.0-36.0) g/dL RDW 13.0 (12.0-15.0) % Plt Count 132 (130-450) 10^3/uL MPV 9.8 (7.4-11.4) fL Neut # (Auto) 4.7 (1.5-6.6) 10^3/uL Lymph # (Auto) 1.6 (1.5-3.5) 10^3/uL [place] # (Auto) 0.5 (0.0-1.0) 10^3/uL Eos # (Auto) 0.3 (0.0-0.7) 10^3/uL Baso # (Auto) 0.1 (0.0-0.1) 10^3/uL Absolute Nucleated RBC 0.00 x10^3/uL Nucleated RBC % 0.0 /100WBC VBG pH (7.31-7.41) Ionized Calcium YES (1.15-1.33) mmol/L Sodium 140 (135-145) mmol/L Potassium 3.8 (3.5-5.0) mmol/L Chloride 108 (101-111) mmol/L Carbon Dioxide 25 (21-32) mmol/L Anion Gap 7.0 (6-13) BUN 25 H (6-20) mg/dL Creatinine 1.2 (0.6-1.2) mg/dL Estimated GFR (MDRD) 58 L (>89) Glucose 211 H (70-100) mg/dL POC Whole Bld Glucose 93 (70 - 100) mg/dL Glycated Hemoglobin (4.6-6.2) % Estim Average Glucose (70-100) Calcium 8.0 L (8.5-10.3) mg/dL Total Bilirubin (0.2-1.0) mg/dL AST (10-42) IU/L ALT (10-60) IU/L Alkaline Phosphatase (42-121) IU/L Total Protein (6.7-8.2) g/dL Albumin (3.2-5.5) g/dL Globulin (2.1-4.2) g/dL Albumin/Globulin Ratio (1.0-2.2) Lipase (22-51) U/L TSH (0.34-5.60) uIU/mL Urine Color Urine Clarity (CLEAR) Urine pH (5.0-7.5) PH Ur Specific [place] (1.002-1.030) Urine Protein (NEGATIVE) mg/dL Urine Glucose (UA) (NEGATIVE) mg/dL Urine Ketones (NEGATIVE) mg/dL Urine Occult Blood (NEGATIVE) Urine Nitrite (NEGATIVE) Urine Bilirubin (NEGATIVE) Urine Urobilinogen (NORMAL) E.U./dL Ur Leukocyte Esterase (NEGATIVE) Ur Microscopic Review Urine Culture Comments Blood Type Blood Type Recheck Antibody Screen 04/14/19 04/14/19 04/14/19 Range/Units 19:32 17:45 16:03 WBC (4.8-10.8) x10^3/uL RBC (4.70-6.10) 10^6/uL Hgb 10.8 L (14.0-18.0) g/dL Hct 32.0 L (42.0-52.0) % MCV (80.0-94.0) fL MCH (27.0-31.0) pg MCHC (32.0-36.0) g/dL RDW (12.0-15.0) % Plt Count (130-450) 10^3/uL MPV (7.4-11.4) fL Neut # (Auto) (1.5-6.6) 10^3/uL Lymph # (Auto) (1.5-3.5) 10^3/uL [place] # (Auto) (0.0-1.0) 10^3/uL Eos # (Auto) (0.0-0.7) 10^3/uL Baso # (Auto) (0.0-0.1) 10^3/uL Absolute Nucleated RBC x10^3/uL Nucleated RBC % /100WBC VBG pH (7.31-7.41) Ionized Calcium (1.15-1.33) mmol/L Sodium (135-145) mmol/L Potassium (3.5-5.0) mmol/L Chloride (101-111) mmol/L Carbon Dioxide (21-32) mmol/L Anion Gap (6-13) BUN (6-20) mg/dL Creatinine (0.6-1.2) mg/dL Estimated GFR (MDRD) (>89) Glucose (70-100) mg/dL POC Whole Bld Glucose 109 H (70 - 100) mg/dL Glycated Hemoglobin (4.6-6.2) % Estim Average Glucose (70-100) Calcium (8.5-10.3) mg/dL Total Bilirubin (0.2-1.0) mg/dL AST (10-42) IU/L ALT (10-60) IU/L Alkaline Phosphatase (42-121) IU/L Total Protein (6.7-8.2) g/dL Albumin (3.2-5.5) g/dL Globulin (2.1-4.2) g/dL Albumin/Globulin Ratio (1.0-2.2) Lipase (22-51) U/L TSH (0.34-5.60) uIU/mL Urine Color YELLOW Urine Clarity CLEAR (CLEAR) Urine pH 5.0 (5.0-7.5) PH Ur Specific [place] 1.020 (1.002-1.030) Urine Protein NEGATIVE (NEGATIVE) mg/dL Urine Glucose (UA) NEGATIVE (NEGATIVE) mg/dL Urine Ketones 15 H (NEGATIVE) mg/dL Urine Occult Blood [place] (NEGATIVE) Urine Nitrite NEGATIVE (NEGATIVE) Urine Bilirubin NEGATIVE (NEGATIVE) Urine Urobilinogen 0.2 (NORMAL) (NORMAL) E.U./dL Ur Leukocyte Esterase NEGATIVE (NEGATIVE) Ur Microscopic Review NOT INDICATED Urine Culture Comments NOT INDICATED Blood Type Blood Type Recheck Antibody Screen 04/14/19 04/14/19 04/14/19 Range/Units 14:02 12:20 12:20 WBC (4.8-10.8) x10^3/uL RBC (4.70-6.10) 10^6/uL Hgb (14.0-18.0) g/dL Hct (42.0-52.0) % MCV (80.0-94.0) fL MCH (27.0-31.0) pg MCHC (32.0-36.0) g/dL RDW (12.0-15.0) % Plt Count (130-450) 10^3/uL MPV (7.4-11.4) fL Neut # (Auto) (1.5-6.6) 10^3/uL Lymph # (Auto) (1.5-3.5) 10^3/uL [place] # (Auto) (0.0-1.0) 10^3/uL Eos # (Auto) (0.0-0.7) 10^3/uL Baso # (Auto) (0.0-0.1) 10^3/uL Absolute Nucleated RBC x10^3/uL Nucleated RBC % /100WBC VBG pH (7.31-7.41) Ionized Calcium (1.15-1.33) mmol/L Sodium 141 (135-145) mmol/L Potassium 4.3 (3.5-5.0) mmol/L Chloride 106 (101-111) mmol/L Carbon Dioxide 27 (21-32) mmol/L Anion Gap 8.0 (6-13) BUN 29 H (6-20) mg/dL Creatinine 1.2 (0.6-1.2) mg/dL Estimated GFR (MDRD) 58 L (>89) Glucose 215 H (70-100) mg/dL POC Whole Bld Glucose (70 - 100) mg/dL Glycated Hemoglobin (4.6-6.2) % Estim Average Glucose (70-100) Calcium 9.8 (8.5-10.3) mg/dL Total Bilirubin 0.8 (0.2-1.0) mg/dL AST 24 (10-42) IU/L ALT 22 (10-60) IU/L Alkaline Phosphatase 83 (42-121) IU/L Total Protein 7.4 (6.7-8.2) g/dL Albumin 4.1 (3.2-5.5) g/dL Globulin 3.3 (2.1-4.2) g/dL Albumin/Globulin Ratio 1.2 (1.0-2.2) Lipase 125 H (22-51) U/L TSH (0.34-5.60) uIU/mL Urine Color Urine Clarity (CLEAR) Urine pH (5.0-7.5) PH Ur Specific [place] (1.002-1.030) Urine Protein (NEGATIVE) mg/dL Urine Glucose (UA) (NEGATIVE) mg/dL Urine Ketones (NEGATIVE) mg/dL Urine Occult Blood (NEGATIVE) Urine Nitrite (NEGATIVE) Urine Bilirubin (NEGATIVE) Urine Urobilinogen (NORMAL) E.U./dL Ur Leukocyte Esterase (NEGATIVE) Ur Microscopic Review Urine Culture Comments Blood Type O POSITIVE Blood Type Recheck O POSITIVE Antibody Screen NEGATIVE 04/14/19 Range/Units 12:20 WBC 10.4 (4.8-10.8) x10^3/uL RBC 3.98 L (4.70-6.10) 10^6/uL Hgb 12.8 L (14.0-18.0) g/dL Hct 37.6 L (42.0-52.0) % MCV 94.5 H (80.0-94.0) fL MCH 32.2 H (27.0-31.0) pg MCHC 34.0 (32.0-36.0) g/dL RDW 12.6 (12.0-15.0) % Plt Count 206 (130-450) 10^3/uL MPV 9.8 (7.4-11.4) fL Neut # (Auto) 8.2 H (1.5-6.6) 10^3/uL Lymph # (Auto) 1.5 (1.5-3.5) 10^3/uL [place] # (Auto) 0.4 (0.0-1.0) 10^3/uL Eos # (Auto) 0.3 (0.0-0.7) 10^3/uL Baso # (Auto) 0.1 (0.0-0.1) 10^3/uL Absolute Nucleated RBC 0.00 x10^3/uL Nucleated RBC % 0.0 /100WBC VBG pH (7.31-7.41) Ionized Calcium (1.15-1.33) mmol/L Sodium (135-145) mmol/L Potassium (3.5-5.0) mmol/L Chloride (101-111) mmol/L Carbon Dioxide (21-32) mmol/L Anion Gap (6-13) BUN (6-20) mg/dL Creatinine (0.6-1.2) mg/dL Estimated GFR (MDRD) (>89) Glucose (70-100) mg/dL POC Whole Bld Glucose (70 - 100) mg/dL Glycated Hemoglobin (4.6-6.2) % Estim Average Glucose (70-100) Calcium (8.5-10.3) mg/dL Total Bilirubin (0.2-1.0) mg/dL AST (10-42) IU/L ALT (10-60) IU/L Alkaline Phosphatase (42-121) IU/L Total Protein (6.7-8.2) g/dL Albumin (3.2-5.5) g/dL Globulin (2.1-4.2) g/dL Albumin/Globulin Ratio (1.0-2.2) Lipase (22-51) U/L TSH (0.34-5.60) uIU/mL Urine Color Urine Clarity (CLEAR) Urine pH (5.0-7.5) PH Ur Specific [place] (1.002-1.030) Urine Protein (NEGATIVE) mg/dL Urine Glucose (UA) (NEGATIVE) mg/dL Urine Ketones (NEGATIVE) mg/dL Urine Occult Blood (NEGATIVE) Urine Nitrite (NEGATIVE) Urine Bilirubin (NEGATIVE) Urine Urobilinogen (NORMAL) E.U./dL Ur Leukocyte Esterase (NEGATIVE) Ur Microscopic Review Urine Culture Comments Blood Type Blood Type Recheck Antibody Screen - Other Results/Comments Other Results/Comments: EXAM: Right hip: Dressings intact. Moves toes well. Sensation intact. Good cap filling Up in chair Assessment/Plan - Problem List (1) Hip fracture, right Impression: Satis post op PLAN: Mobilize as tolerated. Likely to SNF for hip rehab on Mon. Qualifiers: Encounter type: initial encounter Fracture type: closed Qualified Code (s): S72.001A - Fracture of unspecified part of neck of right femur, initial encounter for closed fracture
[2019-04-15] MEDS: ACETAMINOPHEN 325 MG TABLET PO PRN (16:26)
[2019-04-15] MEDS: ATORVASTATIN 10 MG TABLET PO SCH (20:44)
[2019-04-16] MEDS: SODIUM CHLORIDE FLUSH 0.9% 10 ML SYRINGE IVP SCH ×4 (02:44→23:52)
[2019-04-16 04:59] LABS: BASOPHILS % (AUTO) 0.4 %; EOSINOPHILS # (AUTO) 0.4 10^3/uL (0.0-0.7); EOSINOPHILS % (AUTO) 6.1 %; HGB - HEMOGLOBIN 8.8 g/dL (14.0-18.0); LYMPHOCYTES # (AUTO) 1.2 10^3/uL (1.5-3.5); LYMPHOCYTES % (AUTO) 17.1 %; MEAN CORPUSCULAR HEMOGLOBIN 30.9 pg (27.0-31.0); MEAN CORPUSCULAR HGB CONC 32.4 g/dL (32.0-36.0); MEAN CORPUSCULAR VOLUME 95.4 fL (80.0-94.0); MONOCYTES # (AUTO) 0.5 10^3/uL (0.0-1.0); MONOCYTES % (AUTO) 7.9 %; NEUTROPHILS # (AUTO) 4.7 10^3/uL (1.5-6.6); NEUTROPHILS % (AUTO) 68.1 %; PLT - PLATELET COUNT 126 10^3/uL (130-450); RED BLOOD COUNT 2.85 10^6/uL (4.70-6.10); WHITE BLOOD COUNT 6.9 x10^3/uL (4.8-10.8)
[2019-04-16 05:04] LABS: BUN - BLOOD UREA NITROGEN 27 mg/dL (6-20); CREATININE 1.4 mg/dL (0.6-1.2); GFR - MDRD 49 (>89)
[2019-04-16 05:13] LABS: CALCIUM 8.3 mg/dL (8.5-10.3); CARBON DIOXIDE - CO2 22 mmol/L (21-32); CHLORIDE 107 mmol/L (101-111); GLUCOSE 279 mg/dL (70-100); SODIUM 138 mmol/L (135-145)
[2019-04-16 05:17] LABS: VBG PH 7.377 (7.31-7.41)
[2019-04-16] MEDS: LEVOTHYROXINE 125 MCG TABLET PO SCH (06:31)
[2019-04-16] MEDS: ASPIRIN 325 MG TABLET PO SCH ×2 (08:30→17:04)
[2019-04-16] MEDS: glipiZIDE 5 MG TABLET PO SCH ×2 (08:30→20:55)
[2019-04-16] MEDS: LISINOPRIL 20 MG TABLET PO SCH (08:30)
[2019-04-16] MEDS: ATENOLOL 25 MG TABLET PO SCH ×2 (08:31→20:54)
[2019-04-16] MEDS: POLYETHYLENE GLYCOL 3350 17 GM PACKET PO SCH (08:31)
[2019-04-16] MEDS: INSULIN ASPART 300 UNIT/3 ML PEN SUBQ SCH ×6 (08:39→20:55)
[2019-04-16] MEDS: oxyCODONE 5 MG TABLET PO PRN (09:12)
--- NOTE | 2019-04-16 13:02 | PROVIDER PROGRESS NOTE ---
Subjective - Prog Note Date Prog Note Date: 04/16/19 Prog Note Time: 09:00 - Subjective Pt reports feeling: Improved Subjective: he was up in chair eating breakfast, then walking with PT Current Medications - Current Medications Current Medications: Active Medications Acetaminophen (Tylenol) 650 - 975 mg PO Q4HR PRN PRN Reason: PAIN Last Admin: 04/15/19 16:26 Dose: 975 mg Aspirin (Adrian) 325 mg PO BIDWM [facility] Last Admin: 04/16/19 08:30 Dose: 325 mg Atenolol (Tenormin) 50 mg PO BID [facility] Last Admin: 04/16/19 08:31 Dose: 50 mg Atorvastatin Calcium (Lipitor) 15 mg PO QPM [facility] Last Admin: 04/15/19 20:44 Dose: 15 mg Docusate Sodium (Colace 100mg Capsule) 100 mg PO BID PRN PRN Reason: Constipation Glipizide (Glucotrol) 10 mg PO BID [facility] Last Admin: 04/16/19 08:30 Dose: 10 mg Insulin Aspart (Novolog) 3 - 11 unit SUBQ 0800,1200,1700,2100 [facility]; Protocol Last Admin: 04/16/19 11:38 Dose: 9 unit Insulin Aspart (Novolog) 5 unit SUBQ TIDWM [facility]; Protocol Levothyroxine Sodium (Synthroid) 125 mcg PO QDAC [facility] Last Admin: 04/16/19 06:31 Dose: 125 mcg Lisinopril (Zestril) 40 mg PO DAILY [facility] Last Admin: 04/16/19 08:30 Dose: 40 mg Morphine Sulfate (Morphine (Carpuject)) 2 mg IVP Q2HR PRN PRN Reason: Pain 8 to 10 Ondansetron HCl (Zofran Odt) 4 mg TL Q6HR PRN PRN Reason: Nausea / Vomiting Ondansetron HCl (Zofran Inj) 4 mg IVP Q6HR PRN PRN Reason: Nausea / Vomiting Oxycodone HCl (Roxicodone) 5 mg PO Q4HR PRN PRN Reason: PAIN Last Admin: 04/16/19 09:12 Dose: 5 mg Polyethylene Glycol (Miralax) 17 gm PO DAILY [facility] Last Admin: 04/16/19 08:31 Dose: 17 gm Prochlorperazine Edisylate (Compazine Inj) 10 mg IVP Q6HR PRN PRN Reason: Nausea / Vomiting Senna (Senokot) 17.2 mg PO Q12H PRN PRN Reason: Constipation Sodium Chloride (Normal Saline Flush 0.9%) 10 ml IVP 0100,0900,1700 [facility] Last Admin: 04/16/19 08:31 Dose: 10 ml Sodium Chloride (Normal Saline Flush 0.9%) 10 ml IVP PRN PRN PRN Reason: NEEDED PER PROVIDER ORDERS Last Admin: 04/14/19 21:33 Dose: 10 ml Aspirin 81 mg PO DAILY 04/14/19 Atenolol 50 mg PO BID 04/14/19 Glipizide 10 mg PO BID 04/14/19 Levothyroxine [Synthroid] 125 mcg PO QDAC 04/14/19 Lisinopril 40 mg PO DAILY 04/14/19 Metformin HCl 850 mg PO TID 04/14/19 Simvastatin 30 mg PO QPM 04/14/19 hydroCHLOROthiazide [Hydrochlorothiazide] 12.5 mg PO DAILY 04/14/19 Objective - Vital Signs/Intake & Output Reviewed Vital Signs: Yes Vital Signs: Vital Signs x48h Temp Pulse Resp BP Pulse Ox 04/16/19 11:09 37.1 C 75 18 102/44 L 97 04/16/19 07:45 37.0 C 79 18 126/50 L 93 Intake & Output: Intake & Output 04/13/19 04/14/19 04/15/19 04/16/19 23:59 23:59 23:59 22:59 Intake Total 100 4884.667 710 Output Total 325 900 825 Balance -225 3984.667 -115 - Objective General Appearance: positive: No acute distress, Alert Eyes Bilateral: positive: PERRL, EOMI ENT: positive: Other (skin over nose and right preaurciular is drying up, not as wet or red as on admission, on his effudex and steroid cream) Neck: positive: No JVD. negative: Stiff neck, Carotid bruit, Swelling/bruising Respiratory: positive: Chest non-tender, Other (prolonged end exhalation). negative: Wheezes, Rales, Rhonchi Cardiovascular: positive: Regular rate & rhythm. negative: Gallop/S4, Friction rub Abdomen: positive: Non-tender, No organomegaly, Nml bowel sounds, No distention Skin: positive: No rash, Warm, Dry Extremities: positive: No pedal edema, Other Neurologic/Psychiatric: positive: Oriented x3, CN's nml (2-12), Motor nml, Other - Lab Results Fish Bones: 04/16/19 04:30 04/16/19 04:30 Other Labs: Lab Results x24hrs 04/16/19 04/16/19 04/16/19 Range/Units 11:00 07:29 04:30 WBC (4.8-10.8) x10^3/uL RBC (4.70-6.10) 10^6/uL Hgb (14.0-18.0) g/dL Hct (42.0-52.0) % MCV (80.0-94.0) fL MCH (27.0-31.0) pg MCHC (32.0-36.0) g/dL RDW (12.0-15.0) % Plt Count (130-450) 10^3/uL MPV (7.4-11.4) fL Neut # (Auto) (1.5-6.6) 10^3/uL Lymph # (Auto) (1.5-3.5) 10^3/uL [place] # (Auto) (0.0-1.0) 10^3/uL Eos # (Auto) (0.0-0.7) 10^3/uL Baso # (Auto) (0.0-0.1) 10^3/uL Absolute Nucleated RBC x10^3/uL Nucleated RBC % /100WBC VBG pH 7.377 (7.31-7.41) Ionized Calcium 1.11 L (1.15-1.33) mmol/L Sodium (135-145) mmol/L Potassium (3.5-5.0) mmol/L Chloride (101-111) mmol/L Carbon Dioxide (21-32) mmol/L Anion Gap (6-13) BUN (6-20) mg/dL Creatinine (0.6-1.2) mg/dL Estimated GFR (MDRD) (>89) Glucose (70-100) mg/dL POC Whole Bld Glucose 287 H 248 H (70 - 100) mg/dL Calcium (8.5-10.3) mg/dL 04/16/19 04/16/19 04/15/19 Range/Units 04:30 04:30 20:32 WBC 6.9 (4.8-10.8) x10^3/uL RBC 2.85 L (4.70-6.10) 10^6/uL Hgb 8.8 L (14.0-18.0) g/dL Hct 27.2 L (42.0-52.0) % MCV 95.4 H (80.0-94.0) fL MCH 30.9 (27.0-31.0) pg MCHC 32.4 (32.0-36.0) g/dL RDW 13.0 (12.0-15.0) % Plt Count 126 L (130-450) 10^3/uL MPV 10.0 (7.4-11.4) fL Neut # (Auto) 4.7 (1.5-6.6) 10^3/uL Lymph # (Auto) 1.2 L (1.5-3.5) 10^3/uL [place] # (Auto) 0.5 (0.0-1.0) 10^3/uL Eos # (Auto) 0.4 (0.0-0.7) 10^3/uL Baso # (Auto) 0.0 (0.0-0.1) 10^3/uL Absolute Nucleated RBC 0.00 x10^3/uL Nucleated RBC % 0.0 /100WBC VBG pH (7.31-7.41) Ionized Calcium YES (1.15-1.33) mmol/L Sodium 138 (135-145) mmol/L Potassium 3.9 (3.5-5.0) mmol/L Chloride 107 (101-111) mmol/L Carbon Dioxide 22 (21-32) mmol/L Anion Gap 9.0 (6-13) BUN 27 H (6-20) mg/dL Creatinine 1.4 H (0.6-1.2) mg/dL Estimated GFR (MDRD) 49 L (>89) Glucose 279 H (70-100) mg/dL POC Whole Bld Glucose 299 H (70 - 100) mg/dL Calcium 8.3 L (8.5-10.3) mg/dL 11/02/19 Range/Units 16:43 WBC (4.8-10.8) x10^3/uL RBC (4.70-6.10) 10^6/uL Hgb (14.0-18.0) g/dL Hct (42.0-52.0) % MCV (80.0-94.0) fL MCH (27.0-31.0) pg MCHC (32.0-36.0) g/dL RDW (12.0-15.0) % Plt Count (130-450) 10^3/uL MPV (7.4-11.4) fL Neut # (Auto) (1.5-6.6) 10^3/uL Lymph # (Auto) (1.5-3.5) 10^3/uL [place] # (Auto) (0.0-1.0) 10^3/uL Eos # (Auto) (0.0-0.7) 10^3/uL Baso # (Auto) (0.0-0.1) 10^3/uL Absolute Nucleated RBC x10^3/uL Nucleated RBC % /100WBC VBG pH (7.31-7.41) Ionized Calcium (1.15-1.33) mmol/L Sodium (135-145) mmol/L Potassium (3.5-5.0) mmol/L Chloride (101-111) mmol/L Carbon Dioxide (21-32) mmol/L Anion Gap (6-13) BUN (6-20) mg/dL Creatinine (0.6-1.2) mg/dL Estimated GFR (MDRD) (>89) Glucose (70-100) mg/dL POC Whole Bld Glucose 239 H (70 - 100) mg/dL Calcium (8.5-10.3) mg/dL Assessment/Plan - Problem List (1) Femur fracture, right Impression: POD#2 for his pinning. He is progressing normally with physical therapy. Their note today: Patien is 6 0 y/o M admitted with Fx Right hip from GLF and PO day 2 s/p ORIF, WBAT right. SoxHx: lives with son in home, few steps with rail to enter home. PLOF: independent without ad. On assessment todya, pain was well comtrolled with premedicated oxicontine 30 min earlier. Patient requires modA/1-2 for bedmobility and transition supine to sit EOB. Sit to stand transitions improved withint he session from initial modA/1 to Candace/1 with VC for hand placement. First day walking with FWW in room for 20 ft with Candace/1 and VC for gait sequencing and safe use of FWW. Anne was SOB at end of walking but SO2 remained > 96% on ra. Patient commenced on exericse program with good tolerance. Anne will benefit from ongoing PT for strengthening and to progress functional mobility and walking to independent level to allow for safe dc home. Recommend patient transitiont o swing bed for ongoing rehab to reach these goals. Pain is controlled. He has not had any fever, chills. Still a little hypotensive in the postoperative setting. 97% on room air. Plan: Continue to work with the physical therapy Placement for rehab postoperative day #3 Qualifiers: Encounter type: initial encounter Femur location: head, unspecified portion Fracture type: closed Qualified Code(s): S72.051A - Unspecified fracture of head of right femur, initial encounter for closed fracture (2) Controlled type 2 diabetes mellitus without complication, without long-term current use of insulin Impression: on oral sulfonylurea and a1c is >8%. Goal in a man his age would be between 7- 7.5%. His glucose is consitently in the high 200's, 287 for lunch right now. Already on SS insulin. Glypizide. Plan: add 5 units fixed dose before each meal. Resume metformin once he is home (3) Hypertension Impression: resumed his home meds 04/14 once list brought in by son. since 04/14 he is hypotensive. I expect its from blood loss and from his lisinopril 40 mg he had no cp, sob. will hold meds for systolic <110, he is still 85-120 systolic. Qualifiers: Hypertension type: essential hypertension Qualified Code(s): I10 - Essential (primary) hypertension (4) Hypothyroid Impression: resume meds. check TSH Qualifiers: Hypothyroidism type: acquired Qualified Code(s): E03.9 - Hypothyroidism, unspecified (5) Acute blood loss as cause of postoperative anemia Impression: Hgb 12.8 on admission>8.7>8.8 so far no hypoxia or sob. He is hypotensive but is tolerating it. If drops < 8 may need transfusion (3) Hypertension Qualifiers: Hypertension type: essential hypertension Qualified Code(s): I10 - Essential (primary) hypertension (4) Hypothyroid Qualifiers: Hypothyroidism type: acquired Qualified Code(s): E03.9 - Hypothyroidism, unspecified
[2019-04-16] MEDS: ATORVASTATIN 10 MG TABLET PO SCH (20:54)
[2019-04-16] MEDS: ACETAMINOPHEN 325 MG TABLET PO PRN (23:53)
[2019-04-17 05:51] LABS: BASOPHILS % (AUTO) 0.5 %; EOSINOPHILS # (AUTO) 0.4 10^3/uL (0.0-0.7); EOSINOPHILS % (AUTO) 5.1 %; HGB - HEMOGLOBIN 9.2 g/dL (14.0-18.0); LYMPHOCYTES # (AUTO) 1.3 10^3/uL (1.5-3.5); LYMPHOCYTES % (AUTO) 15.3 %; MEAN CORPUSCULAR HEMOGLOBIN 31.1 pg (27.0-31.0); MEAN CORPUSCULAR HGB CONC 32.5 g/dL (32.0-36.0); MEAN CORPUSCULAR VOLUME 95.6 fL (80.0-94.0); MEAN PLATELET VOLUME 10.2 fL (7.4-11.4); MONOCYTES # (AUTO) 0.7 10^3/uL (0.0-1.0); MONOCYTES % (AUTO) 8.4 %; NEUTROPHILS # (AUTO) 5.8 10^3/uL (1.5-6.6); NEUTROPHILS % (AUTO) 70.2 %; PLT - PLATELET COUNT 150 10^3/uL (130-450); RED BLOOD COUNT 2.96 10^6/uL (4.70-6.10); RED CELL DISTRIBUTION WIDTH 12.9 % (12.0-15.0); WHITE BLOOD COUNT 8.3 x10^3/uL (4.8-10.8)
[2019-04-17 05:58] LABS: BUN - BLOOD UREA NITROGEN 29 mg/dL (6-20); CALCIUM 8.5 mg/dL (8.5-10.3); CARBON DIOXIDE - CO2 22 mmol/L (21-32); CHLORIDE 107 mmol/L (101-111); CREATININE 1.4 mg/dL (0.6-1.2); GFR - MDRD 49 (>89); GLUCOSE 314 mg/dL (70-100); SODIUM 139 mmol/L (135-145)
[2019-04-17] MEDS: LEVOTHYROXINE 125 MCG TABLET PO SCH (06:54)
[2019-04-17] MEDS: ASPIRIN 325 MG TABLET PO SCH ×2 (08:10→17:11)
[2019-04-17] MEDS: POLYETHYLENE GLYCOL 3350 17 GM PACKET PO SCH (08:10)
[2019-04-17] MEDS: ATENOLOL 25 MG TABLET PO SCH (08:11)
[2019-04-17] MEDS: INSULIN ASPART 300 UNIT/3 ML PEN SUBQ SCH ×6 (08:11→17:20)
[2019-04-17] MEDS: glipiZIDE 5 MG TABLET PO SCH (08:11)
[2019-04-17] MEDS: LISINOPRIL 20 MG TABLET PO SCH (08:11)
[2019-04-17] MEDS: SODIUM CHLORIDE FLUSH 0.9% 10 ML SYRINGE IVP SCH ×2 (08:14→17:16)
[2019-04-17] MEDS ORDERED: INSULIN 70/30 HUMAN 300 UNIT/3 ML VIAL SUBQ SCH (11:00)
[2019-04-17] MEDS ORDERED: INSULIN NPH HUMAN 300 UNIT/3 ML VIAL SUBQ SCH ×2 (11:00→21:00)
[2019-04-17] MEDS ORDERED: INSULIN NPH HUMAN 100 UNIT/1 ML 10 ML MDV SUBQ SCH ×2 (11:00→21:00)
--- NOTE | 2019-04-17 12:09 | Discharge Plan ---
"Discharge Plan for SNF / [facility] - Discharge Plan And Transition Orders Problem Reviewed?: Yes Disposition: 61 Swing Bed DC/Xfer Condition: Stable Allergies and Adverse Reactions: Allergies Allergy/AdvReac Type Severity Reaction Status Date / Time No Known Drug Allergies Allergy Verified 04/14/19 10:38 Health Concerns: You were walking in a parking lot today when you tripped and fell and landed on your right side. You had immediate hip pain and you were brought to the emergency room and you have a mildly displaced oblique fracture of the top of the right femur. You also have diabetes but do not know what medicines you are on, high blood pressure, and again do not know the medicines you are on. You were admitted to the hospital and underwent a pinning of your right hip to fix the problem. We have updated your medication list.Unfortunately you forgot to tell us you take insulin until the day of discharge. Your glucose was elevated during your stay. Plan of Treatment: 1. Transfer for rehab to regain use of hip and be independent in your own home. 2. Resume you NPH insulin and control your glucose Care Goals: Return to home. Assessment: patient and son agree with goals - SNF / [facility] Transition Orders Admit to (Facility): [facility] Under the care of (Name): Nilsa Salguero MD Discharge Diagnosis: 1. Right femur fracture with trochanteric fracture 2. Fall in parking lot 3. Type 2 diabetes mellitus without complication, with long-term use of insulin 4. Hypertension 5. Hypothyroidism 6. Acute blood loss anemia as cause of postoperative anemia Medicare Certification Statement: I certify that Post Hospital usp care is medically necessary on a continuing basis for any of the conditions for which she/he is receiving care during hospitalization. Notify PCP of admission and forward orders to primary provider for signature. Weight on admission and: Weekly Call PCP immediately if weight increases by: 2 kg Other Notification Orders: Call PCP immediately if patient develops dyspnea, chest pain/tightness or edema. Additional Bowel Program Orders: If no BM after 2 days, nurse may give M.O.M. 30ml PO PRN and/or ducolax Supp 1 OK and/or RADHA 250mg P.O., and/or senna 1-2 tabs PO. On day 3 nurse may give repeat above order until residents constipation is resolved. Annual Influenza Vaccine (between Feb 12 and September 11): Yes Two-step PPD per [facility] [phone] or approved exception documents: Yes Medication Orders: PLEASE REFER TO THE DISCHARGE MEDICATION LIST. Insulin Orders?: Yes - Diet Type: No added sugar Texture: Regular Liquids: Thin May have monthly special meal: Yes - Therapies | Activity Therapy: Evaluation | Treat if indicated: PT, OT Rehabilitation Potential: Maximize functional status, Return to independent living Activity: Activity as Tolerated Assistance Devices: Walker Insulin Orders - SNF Basal | Correction | Custom Orders: Diagnosis: Diabetes Initiate hypo and hyperglycemia protocols for BG <70 and BG >375. May check BG PRN for signs/symptoms of dysglycemia. Frequency of BG checks: [AC/Meal/HS] Basal Insulin: [] Lantus 100 units / ml inject subq as follows: [] [X] Other: [ Novolog NPH 17 units SQ qam before meal and 11 units SQ before meal] Correction Insulin: - Select the type of insulin below [Choose: Novolog]100 units /ml insulin inject subq per orders indicate below [] LOW DOSE [X] MODERATE DOSE [] MODERATE/HIGH DOSE [] HIGH DOSE GB UNITS GB UNITS GB UNITS GB UNITS 61-140 0 UNITS 61-140 0 UNITS 61-140 0 UNITS 61-140 0 UNITS 141-175 1 UNITS 141-175 1 UNITS 141-175 2 UNITS 141-175 3 UNITS 176-225 2 UNITS 176-225 3 UNITS 176-225 4 UNITS 176-225 5 UNITS 226-275 3 UNITS 226-275 5 UNITS 226-275 6 UNITS 226-275 7 UNITS 276-325 4 UNITS 276-325 7 UNITS 276-325 8 UNITS 276-325 9 UNITS 326-375 5 UNITS 326-375 9 UNITS 326-375 10 UNITS 326-375 11 UNITS >375 CONTACT MD >375 CONTACT MD >375 CONTACT MD >375 CONTACT MD Custom Dosing: [Choose: Novolog/Humalog] 100 units/ml Insulin inject subq as follows: GB Units 61-140 [] Units 141-175 [] Units 176-225 [] Units 226-275 [] Units 276-325 []Units 326-375 [] Units >375 Contact MD"
--- NOTE | 2019-04-17 12:17 | DISCHARGE SUMMARY ---
"Discharge Summary Admit Date: 04/14/19 Discharge Date: 04/17/19 Discharging Provider: Nilsa Salguero MD Primary Care Provider: CBEDUAR with [facility] Code Status: Do Not Attempt Resuscitation Condition at Discharge: Stable Discharge Disposition: 61 Swing Bed DC/Xfer - DIAGNOSES Discharge Diagnoses with Status of Each Condition: 1. Right femur fracture with trochanteric fracture 2. Fall in parking lot 3. Type 2 diabetes mellitus without complication, with long-term use of insulin 4. Hypertension 5. Hypothyroidism 6. Acute blood loss anemia as cause of postoperative anemia 7. Hypotension 8. 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 His son lives with him. Not very in tune with his medical problems and cannot name his medication. Nevertheless he was walking in the parking lot today of a business, tripped and fell, and landed on his right side. He was brought to the emergency room and has a mildly displaced oblique fracture involving the right femoral neck and greater and lesser trochanter. Dr. Eduar Vera, orthopedics, has been consulted. Preoperatively he denies any cardiac or pulmonary symptoms with a change in cardiovascular endurance. He really does not have insight about to his illnesses. He cannot name his pills. He thinks his diabetes is okay. When he first came to the hospital in the emergency room both he and his son failed to note that the patient takes NPH at home. The only listed glipizide and metformin. - CONSULTS | PROCEDURES Consultations: Eduar Vera, orthopedics Procedures: 1. Closed reduction and short InterTAN nailing of right hip fracture on April 14 2. Hip and pelvis x-ray with mildly displaced oblique fracture involving the right femoral neck, greater and lesser trochanter. 3. Postoperative films done in OR show expected postoperative changes from the right femoral open reduction internal fixation with intramedullary jerzy and femoral neck pin. - HOSPITAL COURSE Hospital Course: The patient did well with physical therapy. He was able to progress in a normal fashion. He is felt to be a good candidate for rehabilitation to continue therapy. Anticipated discharge from rehab will be to home to independent living. During his stay his blood pressure was mildly elevated to 140 systolic max. He did have some episodes of hypotension in the low 80s immediately postop due to acute blood loss anemia. However he did not require transfusion. His blood pressure medicines were not continued until discharge. Unfortunately his glucose was quite elevated during his stay and we covered him with max dose sliding scale insulin. In spite of that it was not working and we were getting ready to add Lantus when he informed his that he actually takes NPH at home. He forgot to tell us. He does have mild acute kidney insufficiency with creatinine going up to 1.4 with a hypotension. He is transitioned to a rehab status. Temperature is 36.4 pulse is 67 blood pressure 108 over's 54 respirations 16 and 97% on room air. He is a stocky 5 foot 7 inch elderly male who looks stated age. 81.6 kg. Alert, oriented. Able to get up in the room with one max assist. Able to walk slowly using a walker. No JVD, lungs are clear to auscultation and percussion. No increased respiratory effort with walking or speaking. Abdomen is benign with normal bowel sounds, normal flatus. Eating all of his meals. Extremities have no edema and the wound is clean and closed. Greater than 30 minutes spent coordinating discharge. - ALLERGIES Allergies/Adverse Reactions: Allergies Allergy/AdvReac Type Severity Reaction Status Date / Time No Known Drug Allergies Allergy Verified 04/14/19 10:38 - MEDICATIONS Home Medications: Ambulatory Orders Medication Instructions Recorded Confirmed Aspirin 81 mg PO DAILY 04/14/19 04/14/19 Atenolol 50 mg PO BID 04/14/19 04/14/19 Glipizide 10 mg PO BID 04/14/19 04/14/19 Levothyroxine [Synthroid] 125 mcg PO QDAC 04/14/19 04/14/19 Lisinopril 40 mg PO DAILY 04/14/19 04/14/19 Simvastatin 30 mg PO QPM 04/14/19 04/15/19 Acetaminophen [Tylenol] 650 - 975 mg PO Q4HR PRN tablet 04/17/19 oxyCODONE [Roxicodone] 5 mg PO Q4HR PRN tablet 04/17/19 - LABS Result Diagrams: 04/17/19 05:22 04/17/19 05:22"
[2019-04-17] MEDS: oxyCODONE 5 MG TABLET PO PRN (14:21)
[2019-04-17 17:05] VITALS: BP 137/47
== END 2019-04-17 17:28 | disposition swing bed (61) | DRG 481 ==
LOC: ED 10:23 → MS2 13:30
PROVIDERS: ADMIT Specialist; ATTEND Specialist
PROC: 0QS636Z Reposition Right Upper Femur with Intramedullary Internal Fixation Device, Percutaneous Approach (ICD-10-PCS; principal; 2019-04-14 14:00)
DX: S72.001A Fracture of unspecified part of neck of right femur, initial encounter for closed fracture (principal); W19.XXXA Unspecified fall, initial encounter; Y93.9 Activity, unspecified; S72.141A Displaced intertrochanteric fracture of right femur, initial encounter for closed fracture; E11.9 Type 2 diabetes mellitus without complications; D62 Acute posthemorrhagic anemia; N17.9 Acute kidney failure, unspecified; I12.9 Hypertensive chronic kidney disease with stage 1 through stage 4 chronic kidney disease, or unspecified chronic kidney disease; E11.22 Type 2 diabetes mellitus with diabetic chronic kidney disease; N18.3 Chronic kidney disease, stage 3 (moderate); E11.65 Type 2 diabetes mellitus with hyperglycemia; I95.9 Hypotension, unspecified; Y93.01 Activity, walking, marching and hiking; W01.0XXA Fall on same level from slipping, tripping and stumbling without subsequent striking against object, initial encounter; Y92.481 Parking lot as the place of occurrence of the external cause; E03.9 Hypothyroidism, unspecified; I44.0 Atrioventricular block, first degree; R35.1 Nocturia; M19.90 Unspecified osteoarthritis, unspecified site; Z79.4 Long term (current) use of insulin; Z79.82 Long term (current) use of aspirin; Z87.891 Personal history of nicotine dependence; Z85.828 Personal history of other malignant neoplasm of skin
CPT/HCPCS: 36415; 71045; 73501; 73502; 80048; 80053; 81003; 82330; 83036; 83690; 84443; 85014; 85018; 85025; 86850; 86900; 86901; 93005; 97110; 97116; 97162; 97530; 99284; 99285; A9270; J1815; J7120; 81001; 87086

== ENCOUNTER 2019-04-17 11:53 | Inpatient (IN) | payer MEDICARE ==
[2019-04-17] MEDS ORDERED: ACETAMINOPHEN 500 MG TABLET PO PRN (15:32)
[2019-04-17] MEDS ORDERED: oxyCODONE 5 MG TABLET PO PRN (15:36)
[2019-04-17] MEDS ORDERED: IBUPROFEN 600 MG TABLET PO SCH (18:00)
[2019-04-17] MEDS: ATORVASTATIN 10 MG TABLET PO SCH (21:55)
[2019-04-17] MEDS: glipiZIDE 5 MG TABLET PO SCH (21:55)
[2019-04-18] MEDS: IBUPROFEN 600 MG TABLET PO SCH ×4 (03:43→20:58)
[2019-04-18] MEDS: DOCUSATE SODIUM 250 MG CAPSULE PO SCH (08:09)
[2019-04-18] MEDS: glipiZIDE 5 MG TABLET PO SCH ×2 (08:09→20:58)
[2019-04-18] MEDS: ATENOLOL 25 MG TABLET PO SCH (08:09)
[2019-04-18] MEDS: POLYETHYLENE GLYCOL 3350 17 GM PACKET PO SCH (08:09)
[2019-04-18] MEDS ORDERED: FUROSEMIDE 20 MG TABLET PO SCH (09:00)
[2019-04-18] MEDS: DESONIDE TOP SCH (11:58)
[2019-04-18] MEDS: FLUOROURACIL TOP SCH (11:58)
[2019-04-18] MEDS: SENNA 8.6 MG TABLET PO SCH (17:27)
[2019-04-18] MEDS ORDERED: SODIUM CHLORIDE FLUSH 0.9% 10 ML SYRINGE ONE (17:51)
[2019-04-18] MEDS: ATORVASTATIN 10 MG TABLET PO SCH (20:58)
[2019-04-19] MEDS: IBUPROFEN 600 MG TABLET PO SCH ×4 (04:21→22:16)
[2019-04-19 05:04] LABS: CALCIUM 8.3 mg/dL (8.5-10.3); CREATININE 1.3 mg/dL (0.6-1.2)
[2019-04-19] MEDS: LEVOTHYROXINE 125 MCG TABLET PO SCH (06:32)
[2019-04-19] MEDS: SENNA 8.6 MG TABLET PO SCH (08:16)
[2019-04-19] MEDS: POLYETHYLENE GLYCOL 3350 17 GM PACKET PO SCH (08:16)
[2019-04-19] MEDS: glipiZIDE 5 MG TABLET PO SCH ×2 (08:17→20:36)
[2019-04-19] MEDS: DOCUSATE SODIUM 250 MG CAPSULE PO SCH (08:17)
[2019-04-19] MEDS: ATENOLOL 25 MG TABLET PO SCH (08:18)
[2019-04-19] MEDS: LISINOPRIL 5 MG TABLET PO SCH (08:18)
[2019-04-19] MEDS: FLUOROURACIL TOP SCH (08:20)
[2019-04-19] MEDS: DESONIDE TOP SCH (08:21)
[2019-04-19] MEDS ORDERED: MAGNESIUM HYDROXIDE 2,400 MG/30 ML UDC PO SCH (09:38)
[2019-04-19] MEDS ORDERED: MAGNESIUM HYDROXIDE 2,400 MG/30 ML UDC PO ONE (10:00)
[2019-04-19] MEDS: INSULIN ASPART 300 UNIT/3 ML PEN SUBQ SCH ×2 (16:28→20:37)
[2019-04-19] MEDS: ATORVASTATIN 10 MG TABLET PO SCH (20:36)
[2019-04-19] MEDS: INSULIN NPH HUMAN 300 UNIT/3 ML VIAL SUBQ SCH (20:37)
[2019-04-20] MEDS: IBUPROFEN 600 MG TABLET PO SCH ×2 (04:30→09:58)
[2019-04-20] MEDS: LEVOTHYROXINE 125 MCG TABLET PO SCH (06:22)
[2019-04-20] MEDS: POLYETHYLENE GLYCOL 3350 17 GM PACKET PO SCH (08:06)
[2019-04-20] MEDS: ATENOLOL 25 MG TABLET PO SCH (08:07)
[2019-04-20] MEDS: SENNA 8.6 MG TABLET PO SCH (08:07)
[2019-04-20] MEDS: DOCUSATE SODIUM 250 MG CAPSULE PO SCH (08:07)
[2019-04-20] MEDS: glipiZIDE 5 MG TABLET PO SCH ×2 (08:08→20:04)
[2019-04-20] MEDS: LISINOPRIL 5 MG TABLET PO SCH (08:08)
[2019-04-20] MEDS: INSULIN NPH HUMAN 300 UNIT/3 ML VIAL SUBQ SCH ×2 (08:09→20:12)
[2019-04-20] MEDS: INSULIN ASPART 300 UNIT/3 ML PEN SUBQ SCH ×4 (08:11→20:11)
[2019-04-20] MEDS: DESONIDE TOP SCH (08:12)
[2019-04-20] MEDS: FLUOROURACIL TOP SCH (08:12)
[2019-04-20] MEDS: KETOROLAC 10 MG TABLET PO SCH ×2 (11:00→17:08)
[2019-04-20] MEDS: ACETAMINOPHEN 500 MG TABLET PO SCH ×2 (11:00→17:08)
[2019-04-20] MEDS ORDERED: KETOROLAC 10 MG TABLET PO SCH (13:00)
--- NOTE | 2019-04-20 15:58 | PROVIDER PROGRESS NOTE ---
Assessment/Plan - Problem List (1) Hip fracture, right Assessment/Plan: He was admitted to SNF here (swing bed) on 04/17/19. PT and OT are progressing daily. He needs better pain control, per PT. I will adjust his meds to be scheduled using Tylenol and NSAIDs. Today, the Pharmacist brought to my attention that his DVT prophylaxis was not ordered at the time of admission from inpt to SNF swing bed status. (I have informed [place] the fifi RN who will bring this issue to DARRIAN Frazier supervisor framing mill). I will order aspirin as per the orthopedists recommendations, and continue PUD prophylaxis, therefore. (2) DM type 2 (diabetes mellitus, type 2) Assessment/Plan: The Insulin orders did not populate on his med list when he was transferred from inpatient status and admitted to [facility] Swing bed status. Continue Lantus and ss Insulin, Glipizide and carb-control diet. Wire Cutter saw him regarding the cc diet here. (3) CKD (chronic kidney disease) Assessment/Plan: CKD presumably from DM His creat levels were stable at the inpatient stay (4) Hypertension Qualifiers: Hypertension type: essential hypertension Qualified Code(s): I10 - Essential (primary) hypertension Assessment/Plan: VSS on his current meds (5) Hypothyroid Qualifiers: Hypothyroidism type: acquired Qualified Code(s): E03.9 - Hypothyroidism, unspecified Assessment/Plan: He is on his home med. (6) Skin cancer of nose Assessment/Plan: He reports that a large discolored are of the nose was biopsied 6 weeks ago and CA wa diagnosed. He is now on 2 creams and prn sun lotion. These were also late to populate and are now ordered to use here. (7) Bruit of right carotid artery Assessment/Plan: Will obtain carotid Doppler, pt is agreeable. - Current Meds Current Meds: Current Medications Generic Name Dose Route Start Last Admin Trade Name Freq PRN Reason Stop Dose Admin Acetaminophen 500 mg 04/20/19 11:15 04/20/19 11:00 Tylenol PO 04/23/19 11:14 500 mg TIDWM LILI Administration Atenolol 50 mg 04/18/19 09:00 04/20/19 08:07 Tenormin PO Not Given DAILY LILI Atorvastatin Calcium 10 mg 04/17/19 21:00 04/19/19 20:36 Lipitor PO 10 mg QPM LILI Administration Docusate Sodium 250 - 500 mg 04/18/19 09:00 04/20/19 08:07 Colace 250mg Capsule PO Not Given DAILY LILI Glipizide 10 mg 04/17/19 21:00 04/20/19 08:08 Glucotrol PO 10 mg BID LILI Administration Insulin Aspart 1 - 9 unit 04/19/19 17:00 04/20/19 11:57 Novolog SUBQ 9 unit 0800,1200,1700,2100 LILI Administration Protocol Ketorolac Tromethamine 10 mg 04/20/19 11:15 04/20/19 11:00 Toradol PO 04/25/19 11:14 10 mg TIDWM LILI Administration Levothyroxine Sodium 125 mcg 04/19/19 07:00 04/20/19 06:22 Synthroid PO 125 mcg QDAC LILI Administration Lisinopril 10 mg 04/19/19 09:00 04/20/19 08:08 Zestril PO Not Given DAILY LILI (Desonide [Desonide] 1 each 04/18/19 11:30 04/20/19 08:12 1 Applic) TOP 1 each DAILY LILI Administration Fluorouracil [ 1 each 04/18/19 11:30 04/20/19 08:12 Fluorouracil] 1 TOP 1 each Applic DAILY LILI Administration Polyethylene Glycol 17 gm 04/18/19 09:00 04/20/19 08:06 Miralax PO Not Given DAILY LILI Senna 8.6 - 17.2 mg 04/18/19 16:00 04/20/19 08:07 Senokot PO Not Given DAILY LILI - Lab Result Fish Bone Diagrams: 04/19/19 04:45 - Additional Planning My Orders: My Active Orders 04/19/19 17:00 Insulin Aspart [NovoLOG] 1 - 9 unit SUBQ 0800,1200,1700,2100 04/19/19 21:00 Insulin NPH Human [Humulin N] 11 unit SUBQ QPM 04/20/19 09:00 Insulin NPH Human [Humulin N] 17 unit SUBQ DAILY 04/20/19 11:15 Acetaminophen [Tylenol] 500 mg PO TIDWM Ketorolac [Toradol] 10 mg PO TIDWM 04/20/19 21:00 Aspirin EC [Ecotrin] 325 mg PO BID Subjective - Subjective Patient Reports: Feeling Better, No Complaints Nursing Reports: Pain (Son told patient's RN that the pt is stoic and desn't c/o pain) Objective Vital Signs: Vital Signs - 24 hr 04/19/19 04/20/19 17:33 08:03 Temperature 36.3 C L 37.3 C Heart Rate [ 66 69 Radial] Respiratory 18 16 Rate Blood Pressure 113/66 114/58 L [Right Brachial artery] O2 Saturation 98 99 Oxygen O2 Source Room air I&O (Last 24 Hrs): Intake and Output Totals x24h 04/18/19 04/19/19 04/20/19 23:59 23:59 23:59 Intake Total 1000 2300 560 Balance 1000 2300 560 General: Alert, Oriented x3 HEENT: Mucous membr. moist/pink, Other (Red non-swollen dorsum of nose, bridge of nose and nares, also dark-red mole of R cheek.) Neck: Supple, Other (R carotid bruit) Neuro: Non Focal Cardiovascular: Regular rate, No murmurs Respiratory: No respiratory distress, Breath sounds nml Abdomen: Soft, No tenderness Extremities: No edema - Results Results: Laboratory Results Sodium 138 mmol/L (135-145) 04/19/19 04:45 Potassium 4.5 mmol/L (3.5-5.0) 04/19/19 04:45 Chloride 108 mmol/L (101-111) 04/19/19 04:45 Carbon Dioxide 24 mmol/L (21-32) 04/19/19 04:45 Anion Gap 6.0 (6-13) 04/19/19 04:45 BUN 35 mg/dL (6-20) H 04/19/19 04:45 Creatinine 1.3 mg/dL (0.6-1.2) H 04/19/19 04:45 Estimated GFR (MDRD) 53 (>89) L 04/19/19 04:45 Glucose 372 mg/dL (70-100) H 04/19/19 04:45 POC Whole Bld Glucose 368 mg/dL (70 - 100) H 04/20/19 11:39 Calcium 8.3 mg/dL (8.5-10.3) L 04/19/19 04:45
--- NOTE | 2019-04-20 16:03 | HISTORY & PHYSICAL EXAMINATION ---
DATE OF SERVICE: 04/18/2019 Physician: Nilsa Salguero MD PRIMARY CARE PROVIDER: [facility]. PROVIDER: Nilsa Salguero MD CHIEF COMPLAINT: Postoperative hip repair patient, who was admitted 04/14/2019. 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 He was admitted to the hospital for acute care stay on 04/14/2019 through 04/17/2019 for a fall and a subsequent hip fracture that was repaired. In the postoperative setting, expected complication was acute blood loss anemia. Uncontrolled diabetes since his medication reconciliation was incorrect. At the time of admission, he had forgotten to tell us he was on NPH insulin twice a day. As such, that was not used during his stay, and glucose became elevated in spite of sliding scale insulin and his sulfonylurea. Other than that, he did well. Recovered in the normal postoperatively way and progressed with physical therapy. He is now admitted to swing-bed status for continued rehabilitation. He is able to transfer from a sitting to standing position using a front-wheeled walker using bilateral upper extremities on the arm rest with contact guard assist. He is able to ambulate 80 feet with a front-wheeled walker and contact guard assist and a chair to follow. He has pain with his ambulation, and he is very slow and demonstrates a limp of his right lower extremity. He needs to be cued to use his bilateral upper extremities to support his weight with stepping forward with the right foot. He demonstrates difficulty to flex his hip to clear his steps going up when there is a testing of three 3-inch steps. Pain is his main limiting factor. He has been improving with his gait during his hospital stay; and Physical Therapy recommends continue therapy 1-2 times a day for interventions in his gait training, functional activities. Anticipated that he will be discharged to home via private vehicle and outpatient physical therapy to continue to improve his baseline status. On Review of Systems, there is a 10-point review of systems that is currently negative, other than for the hip pain. PAST MEDICAL HISTORY 1. Type 2 diabetes mellitus, controlled, without complications on long-term use of insulin. 2. Hypertension. 3. Hypothyroidism. ALLERGIES: NO KNOWN DRUG ALLERGIES. MEDICATIONS Medications at this time are: 1. Aspirin 81 mg daily. 2. Atenolol 50 mg b.i.d. 3. Desonide cream to his face. 4. 5-FU cream to his face 5. Glipizide 10 mg b.i.d. 6. Novolin NPH in the evening 11 units, and 17 units in the morning. 7. Synthroid 125 mcg daily. 8. Lisinopril 40 mg daily. 9. Simvastatin 30 mg daily. 10. Tylenol 650 mg every 6 hours as needed for pain. 11. Oxycodone 5 mg every 4 hours as needed for pain. SOCIAL AND FAMILY HISTORY: Reviewed from 04/14/2019 history and physical and remain unchanged. PHYSICAL EXAMINATION VITAL SIGNS: Temperature is 36.5, pulse is 61, blood pressure 119/61, respirations 16, 95% on room air. GENERAL: He is a stocky elderly man who looks his stated age, alert, oriented, cheerful. HEAD AND NECK: Exam has a resolving flaking yellowish rash with red skin underneath that rash over the bridge of his nose, between his eyebrows, and the right preauricular area. Poor dentition. Otherwise normal facial symmetry. Normal intonation of voice and speaking. Neck is supple with shotty adenopathy, no goiter or bruits. LUNGS: Clear to auscultation and percussion without crackles, rhonchi, or wheezing. HEART: PMI is normally placed with a regular rate and rhythm. ABDOMEN: Soft, nontender. No organomegaly. EXTREMITIES: Without clubbing, cyanosis, or edema. The right hip incision is closed, healed, without redness or drainage. He has decreased flexion and range of motion in the right hip. Pain with standing. Otherwise has no other focal deficits on neurological exam or extremities. ASSESSMENT/PLAN 1. Fall with right hip fracture. Status post surgery. Now admitted to swing- bed status for continued rehabilitation. Focus will be on progression with ambulation and intention is for him to return to his previous baseline activities with discharge to home. 2. Type 2 diabetes mellitus. Sliding scale insulin, glipizide, and his NPH will be resumed. 3. Hypertension will be treated with his usual home medications. Blood pressures will be checked daily. 4. For hypothyroidism, he will have his regular Synthroid resumed. TSH was checked on April 15 at 2.19. 5. Deep venous thrombosis prophylaxis will be JASEN keller. CODE STATUS: DO NOT RESUSCITATE. TD: 04/20/2019 15:21 [email or web address]
[2019-04-20] MEDS: ASPIRIN EC 325 MG TABLET PO SCH (20:03)
[2019-04-20] MEDS: ATORVASTATIN 10 MG TABLET PO SCH (20:04)
--- NOTE | 2019-04-21 01:02 | Ultrasound Report ---
Reason: Right carotid bruit Procedure Date: 04/20/2019 Accession Number: [id number] / [id number] Procedure: US - Carotid Doppler Complete CPT Code: Final Report FULL RESULT: EXAM: BILATERAL CAROTID AND VERTEBRAL ARTERY DUPLEX DOPPLER ULTRASOUND. EXAM DATE: 04/20/2019 11:25 PM. CLINICAL HISTORY: Right carotid bruit. COMPARISON: None. TECHNIQUE: Grayscale imaging, color Doppler, and duplex spectral Doppler were used to evaluate the carotid and vertebral arteries bilaterally. Static images were obtained. FINDINGS: Mild to moderate calcific plaque within the right common carotid and carotid bulb region. There is also suspect mild amount of soft plaque in this region. Similarly, there is a mild amount of calcified and soft plaque within the left common carotid, carotid bulb, as well as proximal ICA. VELOCITIES (cm/sec): Right CCA mid: PSV 138 cm/sec CCA dist: PSV 126 cm/sec ICA prox: PSV 108 cm/sec, EDV 28 cm/sec ICA mid: PSV 98 cm/sec, EDV 30 cm/sec ICA dist: PSV 129 cm/sec, EDV 40 cm/sec ECA: PSV 112 cm/sec Vert: PSV 42 cm/sec ICA/CCA: 0.93 Left CCA mid: PSV 126 cm/sec CCA dist: PSV 126 cm/sec ICA prox: PSV 49 cm/sec, EDV 20 cm/sec ICA mid: PSV 39 cm/sec, EDV 13 cm/sec ICA dist: PSV 83 cm/sec, EDV 30 cm/sec ECA: PSV 106 cm/sec Vert: PSV 59 cm/sec ICA/CCA: 0.65 ICA diameter stenosis: Right: <50% by velocity and <70% by NASCET criteria. Left: <50% by velocity and <70% by NASCET criteria. IMPRESSION: 1. No significant bilateral carotid artery plaquing. 2. In the right carotid artery there are no elevated carotid artery velocities to suggest hemodynamically significant stenosis. 3. In the left carotid artery there are no elevated carotid artery velocities to suggest hemodynamically significant stenosis. 4. Normal antegrade flow is present in bilateral vertebral arteries. General Recommendations: Stenosis =50% ICA - Follow-up ultrasound 6-12 months Stenosis <50% ICA - High Risk Patient with plaque - Follow-up ultrasound 1-2 years Normal Study but High Risk Patient - Follow-up ultrasound 3-5 years Management recommendations and diagnostic criteria are based on current IAC endorsed standards in Carotid Artery Stenosis: Grayscale and Doppler Ultrasound Diagnosis. Validated velocity measurements with angiographic measurements and velocity criteria are extrapolated from diameter data as defined by the Society of Radiologists in Ultrasound Consensus Conference Radiology 2003; 229;340-346. RADIA
[2019-04-21] MEDS: LEVOTHYROXINE 125 MCG TABLET PO SCH (06:10)
[2019-04-21] MEDS: LISINOPRIL 5 MG TABLET PO SCH (10:01)
[2019-04-21] MEDS: KETOROLAC 10 MG TABLET PO SCH ×3 (10:01→17:01)
[2019-04-21] MEDS: glipiZIDE 5 MG TABLET PO SCH ×2 (10:01→21:18)
[2019-04-21] MEDS: POLYETHYLENE GLYCOL 3350 17 GM PACKET PO SCH (10:01)
[2019-04-21] MEDS: ASPIRIN EC 325 MG TABLET PO SCH ×2 (10:01→21:18)
[2019-04-21] MEDS: ACETAMINOPHEN 500 MG TABLET PO SCH ×3 (10:05→17:01)
[2019-04-21] MEDS: ATENOLOL 25 MG TABLET PO SCH (10:05)
[2019-04-21] MEDS: DOCUSATE SODIUM 250 MG CAPSULE PO SCH (10:06)
[2019-04-21] MEDS: SENNA 8.6 MG TABLET PO SCH (10:06)
[2019-04-21] MEDS: INSULIN NPH HUMAN 300 UNIT/3 ML VIAL SUBQ SCH ×2 (10:11→21:20)
[2019-04-21] MEDS: INSULIN ASPART 300 UNIT/3 ML PEN SUBQ SCH ×4 (10:13→21:18)
[2019-04-21] MEDS: FLUOROURACIL TOP SCH (10:16)
[2019-04-21] MEDS: DESONIDE TOP SCH (10:16)
--- NOTE | 2019-04-21 18:47 | Discharge Plan ---
Discharge Plan Problem Reviewed?: Yes Disposition: Home, Self Care Condition: Stable Diet: Diabetic Activity Restrictions: Activity as Tolerated Shower Restrictions: No Driving Restrictions: Yes (Follow Orthopedist's orders for restrictions) Assistance Devices: Walker Instruction Topics: Hip Safety Master Daily Tasks, Hip Safety Dressing, Hip Safety Into and Out Bed, Fx Hip Surg Home Recovery Health Concerns: You were having rehab after the fractured hip had successful surgery. Plan of Treatment: Stay on the adult dose coated aspirin twice a day for 5 more days, then go back to taking the baby aspirin daily. Use the Tylenol and Motrin if needed for pain control. See the Orthopedic Clinic doctor in 1-2 weeks, call to make an appointment: . Resume all your other pre-hospital medications, including the creams and your diabetic diet. Care Goals: Improved mobility without pain. Assessment: The patient is in agreement with this plan. Additional Instructions or Follow Up instructions: [facility]. No Smoking: If you smoke, Please STOP! Call for help. Follow-up with: Eduar Vera MD [Provider Admit Priv/Credential] -
[2019-04-21] MEDS: ATORVASTATIN 10 MG TABLET PO SCH (21:18)
[2019-04-22 06:37] VITALS: BP 117/51
[2019-04-22] MEDS: LEVOTHYROXINE 125 MCG TABLET PO SCH (07:03)
--- NOTE | 2019-04-22 19:10 | DISCHARGE SUMMARY ---
Discharge Summary Admit Date: 04/17/19 Discharge Date: 04/22/19 Discharging Provider: Dr Rosetta Alford Code Status: Attempt Resuscitation Condition at Discharge: Stable Discharge Disposition: 01 Home, Self Care - DIAGNOSES Admission Diagnoses: 1. Right hip fracture with successful orthopedic repair 2. Type 2 diabetes mellitus without complication, with long-term use of insulin 3. Hypertension 4. Hypothyroidism 5. Anemia, postoperative 6. Chronic kidney disease, stage III Discharge Diagnoses with Status of Each Condition: See below - HPI History of Present Illness: This is an 78 y/o WM with a Hx of IDDM, HTN, hypothyroidism and recent skin cancer of the nose, who had a recent fall in a parking lot, suffered a right hip fracture and underwent successful orthopedic repair. He was starting to pro theresa in PT rehab and was discharged from [facility] and admitted to [facility] swing bed, for further rehab. - HOSPITAL COURSE Hospital Course: (1) Hip fracture, right He was admitted to the [facility] swing bed and PT and OT progressed daily. His pain med were scheduled using Tylenol and NSAIDs, he wanted no narcotics. He was on DVT prophylaxis using aspirin as per the orthopedists recommendations. (2) DM type 2 (diabetes mellitus, type 2) Insulin Lantus and ss Aspart Insulin were ordered as well as Glipizide and carb- control diet. Commercial Accountant saw him regarding the diabetic diet, while here. (3) CKD (chronic kidney disease) CKD presumably from DM. His creat levels were stable (1.3-1.4) during the recent inpatient stay (4) Hypertension BP was stable on his current meds (5) Hypothyroid He was kept on his home med. (6) Skin cancer of nose He reported that a large discolored are of the nose was biopsied 6 weeks ago and cancer was diagnosed. He was prescribed 2 creams and prn sun lotion, which were continued here. (7) Bruit of right carotid artery My exam noted a bruit on the right. He had carotid Doppler done and this showed mild stenosis of the right, normal on the left. Continued management of DM, HTN, cholesterol and aspirin use was advised. - ALLERGIES Allergies/Adverse Reactions: Allergies Allergy/AdvReac Type Severity Reaction Status Date / Time No Known Drug Allergies Allergy Verified 04/14/19 10:38 - MEDICATIONS Home Medications: Ambulatory Orders Medication Instructions Recorded Confirmed Atenolol 50 mg PO BID 04/14/19 04/17/19 Glipizide 10 mg PO BID 04/14/19 04/17/19 Levothyroxine [Synthroid] 125 mcg PO QDAC 04/14/19 04/17/19 Lisinopril 40 mg PO DAILY 04/14/19 04/17/19 Simvastatin 30 mg PO QPM 04/14/19 04/17/19 Acetaminophen [Tylenol] 650 - 975 mg PO Q4HR PRN tablet 04/17/19 04/17/19 oxyCODONE [Roxicodone] 5 mg PO Q4HR PRN tablet 04/17/19 04/17/19 Desonide 1 applic TOP DAILY 04/18/19 04/18/19 Fluorouracil 1 applic TOP DAILY 04/18/19 04/18/19 Insulin NPH Human [NovoLIN N] 11 unit SUBQ QPM 04/19/19 04/19/19 Insulin NPH Human [NovoLIN N] 17 unit SUBQ DAILY 04/19/19 04/19/19 Aspirin EC [Ecotrin] 325 mg PO BID tablet 04/21/19 - PHYSICAL EXAM AT DISCHARGE General Appearance: positive: No acute distress, Alert Eyes Bilateral: positive: Normal inspection ENT: positive: Other (Large red patch on his nose and cheeks) Neck: positive: Thyroid nml, No JVD, Carotid bruit (Right), Other Respiratory: positive: No respiratory distress Cardiovascular: positive: Regular rate & rhythm, No murmur Abdomen: positive: Non-tender, No distention Extremities: positive: No pedal edema - LABS Result Diagrams: 04/19/19 04:45 - FOLLOW UP Follow Up: See PCP in 1-2 weeks, and Automobile Inspector as per routine.
== END 2019-04-22 08:20 | disposition home or self-care (01) | DRG 561 ==
LOC: MS3 15:30
PROVIDERS: ADMIT Specialist; ATTEND Internal Medicine
DX: S72.001D Fracture of unspecified part of neck of right femur, subsequent encounter for closed fracture with routine healing (principal); G89.18 Other acute postprocedural pain; R26.2 Difficulty in walking, not elsewhere classified; I12.9 Hypertensive chronic kidney disease with stage 1 through stage 4 chronic kidney disease, or unspecified chronic kidney disease; E11.22 Type 2 diabetes mellitus with diabetic chronic kidney disease; N18.3 Chronic kidney disease, stage 3 (moderate); E03.9 Hypothyroidism, unspecified; I65.23 Occlusion and stenosis of bilateral carotid arteries; C44.301 Unspecified malignant neoplasm of skin of nose; W01.0XXD Fall on same level from slipping, tripping and stumbling without subsequent striking against object, subsequent encounter; Z79.4 Long term (current) use of insulin; Z79.82 Long term (current) use of aspirin
CPT/HCPCS: 36415; 80048; 93880